=== PATIENT | female | born 1945 | race Caucasian/White ===

== ENCOUNTER 2020-09-01 22:00 | Inpatient (IN) | payer MEDICARE, OTHER ==
[2020-09-01] MEDS ORDERED: Sodium Chloride 0.9% 10 ML Syringe FLUSH PRN (22:22)
[2020-09-01] MEDS ORDERED: Lactated Ringers 1,000 ML IV ONE (22:25)
--- NOTE | 2020-09-01 22:28 | EDM.PDOC ---
ED HPI GENERAL MEDICAL PROBLEM - General Chief Complaint: Neuro Symptoms/Deficits Stated Complaint: OFF BALANCE/LOW OXYGEN LEVEL Time Seen by Provider: 09/01/20 22:06 Source of Information: Reports: Patient, Family History Limitations: Reports: Altered Mental Status - History of Present Illness INITIAL COMMENTS - FREE TEXT/NARRATIVE: Patient arrived to the ED by private vehicle She is accompanied by her daughter, who is primary historian Daughter encountered patient being very unsteady of gait today with generalized weakness and confusion She reports onset of symptoms 1 week ago with cough, fever Cough has somewhat improved, but she has had shortness of breath past few days Patient has also been having diarrhea Daughter reports markedly reduced oral intake over the past week Confusion, weakness, and difficulty walking were noted today Daughter also reports pulse oximetry 86-90% at home There is no history of trauma or injury Patient denies chest pain, abdominal pain, nausea, vomiting - Related Data Allergies Allergy/AdvReac Type Severity Reaction Status Date / Time No Known Allergies Allergy Verified 09/02/20 02:39 Home Meds: Home Meds Latanoprost/Pf [Latanoprost 0.005% Eye Drop] 1 drop OP DAILY 09/01/20 [History] Past Medical History ENROBER History: Reports: Endocrine/Metabolic History: Reports: Obesity/BMI 30+ Oncologic (Cancer) History: Reports: Uterine - Past Surgical History GI Surgical History: Reports: Appendectomy Female Surgical History: Reports: Other (See Below) Other Female Surgeries/Procedures: Uterus removed Social & Family History - Tobacco Use Tobacco Use Status *Q: Never Tobacco User - Caffeine Use Caffeine Use: Reports: Tea - Recreational Drug Use Recreational Drug Use: No ED ROS GENERAL - Review of Systems Review Of Systems: See Below Free Text/Narrative/Comment: Constitutional - fever; anorexia; generalized weakness Eyes - no eye pain; no visual disturbance ENT - no rhinorrhea; no congestion; no epistaxis Cardiovascular - no chest pain Respiratory - shortness of breath; cough Gastrointestinal - no abdominal pain; no nausea; no vomiting; diarrhea Genitourinary - no dysuria Musculoskeletal - no neck pain; no back pain; no extremity injury Neurological - no headache; no speech disturbance; generalized weakness; disorientation Skin - no laceration ED EXAM, GENERAL - Physical Exam Exam: See Below Free Text/Narrative:: Constitutional - awake; alert; appears generally weak, and mild to moderately ill Head - no facial swelling or weakness Eyes - extra ocular motion intact; conjunctiva normal; pupils equal and reactive to light ENT - no nasal deformity; no epistaxis; normal phonation; mucus membranes tacky; Neck - no swelling Respiratory - mild respiratory effort; bibasilar crackles; no wheezing; no stridor Cardiovascular - regular rhythm; tachycardic; S1; S2; grade 1/6 systolic murmur GI/Abdomen - normal bowel sounds; soft; no tenderness; no rebound; no guarding; no mass Musculoskeletal - grossly intact with no swelling or deformity Skin - warm; dry Neurologic - speech intact but quiet and somewhat slow; disoriented to day, season; grossly normal strength of all extremities; able to stand for transfer from wheelchair to stretcher with assistance; gait deferred Psychiatric - blunted mood and affect; memory deferred; attention normal #1 Interpretation EKG Date: 09/01/20 Time: 22:28 Rhythm: NSR [place]: Normal P-Wave: Present QRS: Normal ST-T: Normal Course - Vital Signs Text/Narrative:: . Considered etiologies included: Cough, dyspnea, anorexia, fever, weakness, altered mental status, dehydration, metabolic derangement, intracranial lesion, sepsis, pneumonia, viral syndrome, COVID-19 Symptoms and examination were discussed Investigations were initiated Treatment was initiated with IV fluid infusion Patient refused testing for COVID-19, as she does not believe that it is real She also did not seek or receive COVID-19 vaccination She was advised of clinical findings suspicious for pneumonia In consideration of her functional decline and ambulatory dysfunction, she was advised of anticipated need for admission Results were discussed, with radiographic findings suspicious for COVID-19 pneumonia Empiric antibiotic coverage for community-acquired pneumonia was also initiated 0026 - Case was discussed with Dr. Hollins (hospitalist) who accepted patient for admission Treatment with steroids was recommended Bridge orders were implemented by chief writer There was no occurrence of hypoxia during ED course Patient was admitted to general medical avery in stable condition Last Recorded V/S: Last Vital Signs Temp 37.5 C 09/02/20 02:08 Pulse 99 09/02/20 02:08 Resp 15 09/02/20 02:08 BP 163/71 H 09/02/20 02:08 Pulse Ox 95 09/02/20 02:08 - Orders/Labs/Meds Orders: Active Orders 24 hr Category Date Time Status EKG Documentation Completion [RC] ASDIRECTED Care 09/01/20 22:22 Active Chest 1V Frontal [CR] Stat Exams 09/01/20 22:19 Taken Head wo Cont [CT] Stat Exams 09/01/20 22:22 Taken CULTURE BLOOD [BC] Stat Lab 09/01/20 22:22 Ordered CULTURE BLOOD [BC] Stat Lab 09/01/20 23:00 Received Sodium Chloride 0.9% [Saline Flush] Med 09/01/20 22:22 Active 10 ml FLUSH ASDIRECTED PRN Blood Culture x2 Reflex Set [OM.PC] Stat Oth 09/01/20 22:19 Ordered Peripheral IV Insertion Adult [OM.PC] Stat Oth 09/01/20 22:19 Ordered EKG 12 Lead [EK] Stat Ther 09/01/20 22:18 Ordered Medication Orders Dexamethasone (Dexamethasone 4 Mg Tab) 6 mg PO DAILY YARELI Sodium Chloride (Normal Saline) 1,000 mls @ 150 mls/hr IV ASDIRECTED YARELI Last Admin: 09/02/20 02:41 Dose: 150 mls/hr Documented by: JESSY Latanoprost (Latanoprost 0.005% Ophth Soln 2.5 Ml Bottle) 0 ml EYEBOTH BEDTIME YARELI Sodium Chloride (Sodium Chloride 0.9% 10 Ml Syringe) 10 ml FLUSH ASDIRECTED PRN PRN Reason: Keep Vein Open Last Admin: 09/01/20 23:10 Dose: 10 ml Documented by: DARON Labs: Laboratory Tests 09/01/20 09/01/20 09/01/20 Range/Units 22:05 22:05 22:07 WBC 5.04 (3.98-10.04) K/mm3 RBC 4.71 (3.98-5.22) M/mm3 Hgb 13.2 (11.2-15.7) gm/dl Hct 38.2 (34.1-44.9) % MCV 81.1 (79.4-94.8) fl MCH 28.0 (25.6-32.2) pg MCHC 34.6 (32.2-35.5) g/dl RDW Std Deviation 38.2 (36.4-46.3) fL Plt Count 183 (182-369) K/mm3 MPV 10.8 (9.4-12.3) fl Neut % (Auto) 83.9 H (34.0-71.1) % Lymph % (Auto) 9.1 L (19.3-51.7) % [place] % (Auto) 4.4 L (4.7-12.5) % Eos % (Auto) 0.2 L (0.7-5.8) Baso % (Auto) 0.4 (0.1-1.2) % Neut # (Auto) 4.23 (1.56-6.13) K/mm3 Lymph # (Auto) 0.46 L (1.18-3.74) K/mm3 [place] # (Auto) 0.22 L (0.24-0.36) K/mm3 Eos # (Auto) 0.01 L (0.04-0.36) K/mm3 Baso # (Auto) 0.02 (0.01-0.08) K/mm3 Manual Slide Review Abnormal smear Sodium 124 L (136-145) mEq/L Potassium 3.1 L (3.5-5.1) mEq/L Chloride 87 L (98-107) mEq/L Carbon Dioxide 27 (21-32) mEq/L Anion Gap 13.1 (5-15) BUN 20 H (7-18) mg/dL Creatinine 1.3 H (0.55-1.02) mg/dL Est Cr Clr Drug Dosing 33.13 mL/min Estimated GFR (MDRD) 40 (>60) mL/min BUN/Creatinine Ratio 15.4 (14-18) Glucose 116 H (83-115) mg/dL POC Glucose 113 H (70-99) mg/dL Lactic Acid (0.4-2.0) mmol/L Calcium 8.2 L (8.5-10.1) mg/dL Total Bilirubin 0.9 (0.2-1.0) mg/dL AST 139 H (15-37) U/L ALT 108 H (14-59) U/L Alkaline Phosphatase 80 (46-116) U/L Troponin I < 0.017 (0.00-0.056) ng/mL Total Protein 7.8 (6.4-8.2) g/dl Albumin 3.1 L (3.4-5.0) g/dl Globulin 4.7 gm/dL Albumin/Globulin Ratio 0.7 L (1-2) 05/03/21 Range/Units 22:50 WBC (3.98-10.04) K/mm3 RBC (3.98-5.22) M/mm3 Hgb (11.2-15.7) gm/dl Hct (34.1-44.9) % MCV (79.4-94.8) fl MCH (25.6-32.2) pg MCHC (32.2-35.5) g/dl RDW Std Deviation (36.4-46.3) fL Plt Count (182-369) K/mm3 MPV (9.4-12.3) fl Neut % (Auto) (34.0-71.1) % Lymph % (Auto) (19.3-51.7) % [place] % (Auto) (4.7-12.5) % Eos % (Auto) (0.7-5.8) Baso % (Auto) (0.1-1.2) % Neut # (Auto) (1.56-6.13) K/mm3 Lymph # (Auto) (1.18-3.74) K/mm3 [place] # (Auto) (0.24-0.36) K/mm3 Eos # (Auto) (0.04-0.36) K/mm3 Baso # (Auto) (0.01-0.08) K/mm3 Manual Slide Review Sodium (136-145) mEq/L Potassium (3.5-5.1) mEq/L Chloride (98-107) mEq/L Carbon Dioxide (21-32) mEq/L Anion Gap (5-15) BUN (7-18) mg/dL Creatinine (0.55-1.02) mg/dL Est Cr Clr Drug Dosing mL/min Estimated GFR (MDRD) (>60) mL/min BUN/Creatinine Ratio (14-18) Glucose (83-115) mg/dL POC Glucose (70-99) mg/dL Lactic Acid 1.3 (0.4-2.0) mmol/L Calcium (8.5-10.1) mg/dL Total Bilirubin (0.2-1.0) mg/dL AST (15-37) U/L ALT (14-59) U/L Alkaline Phosphatase (46-116) U/L Troponin I (0.00-0.056) ng/mL Total Protein (6.4-8.2) g/dl Albumin (3.4-5.0) g/dl Globulin gm/dL Albumin/Globulin Ratio (1-2) Meds: Medications Generic Name Dose Route Start Last Admin Trade Name Eugeneq PRN Reason Stop Dose Admin Dexamethasone 6 mg 09/02/20 09:00 Dexamethasone 4 Mg Tab PO DAILY YARELI Sodium Chloride 1,000 mls @ 150 mls/hr 09/02/20 02:45 09/02/20 02:41 Normal Saline IV 150 mls/hr ASDIRECTED YARELI Administration Latanoprost 0 ml 09/02/20 21:00 Latanoprost 0.005% Ophth Soln 2.5 Ml Bottle EYEBOTH BEDTIME YARELI Sodium Chloride 10 ml 09/01/20 22:22 09/01/20 23:10 Sodium Chloride 0.9% 10 Ml Syringe FLUSH 10 ml ASDIRECTED PRN Administration Keep Vein Open Discontinued Medications Generic Name Dose Route Start Last Admin Trade Name Eugeneq PRN Reason Stop Dose Admin Azithromycin 500 mg 09/02/20 01:11 09/02/20 01:44 Azithromycin 250 Mg Tab PO 09/02/20 01:12 500 mg ONETIME ONE Administration Dexamethasone 6 mg 09/02/20 01:10 09/02/20 01:44 Dexamethasone 4 Mg Tab PO 09/02/20 01:11 6 mg ONETIME ONE Administration Lactated Ringer's 1,000 mls @ 999 mls/hr 09/01/20 22:25 09/01/20 23:10 Ringers, Lactated IV 09/01/20 23:25 999 mls/hr .BOLUS ONE Administration Ceftriaxone Sodium 1 gm/ 100 mls @ 200 mls/hr 09/01/20 23:49 Sodium Chloride IV 09/02/20 00:18 ONETIME ONE Sodium Chloride 1,000 mls @ 999 mls/hr 09/01/20 23:52 09/02/20 00:21 Normal Saline IV 09/02/20 00:52 999 mls/hr ONETIME ONE Administration Ceftriaxone Sodium 1 gm/ 100 mls @ 200 mls/hr 09/02/20 00:12 09/02/20 00:21 Sodium Chloride IV 09/02/20 00:41 200 mls/hr ONETIME ONE Administration Sodium Chloride 1,000 mls @ 150 mls/hr 09/02/20 02:30 Normal Saline IV ASDIRECTED YARELI - Radiology Interpretation Free Text/Narrative:: CT head, noncontrast, preliminary radiology report: 1. Negative head CT. 2. [place] Stroke Program Early CT CAP score (ASPECTS) = 10 XR chest, one-view portable, interpreted by chief writer: Patchy bilateral infiltrates consistent with COVID-19 pneumonia Departure - Departure Time of Disposition: 00:26 Disposition: Refer to Observation Condition: Fair Clinical Impression: Clinical diagnosis of COVID-19, Pneumonia due to 2019 novel coronavirus, Weakness generalized, Hyponatremia, Hypokalemia, Renal insufficiency Change in mental status Qualifiers: Altered mental status type: disorientation Qualified Code(s): R41.0 - Disorientation, unspecified - Discharge Information Sepsis Event Note (ED) - Evaluation Sepsis Screening Result: Possible Sepsis Risk - Focused Exam Vital Signs: Vital Signs Temp Pulse Resp BP Pulse Ox 09/01/20 22:06 36.7 C 111 H 16 152/79 H 91 L - My Orders Last 24 Hours: My Active Orders 09/01/20 22:18 EKG 12 Lead [EK] Stat 09/01/20 22:19 Chest 1V Frontal [CR] Stat Blood Culture x2 Reflex Set [OM.PC] Stat Peripheral IV Insertion Adult [OM.PC] Stat 09/01/20 22:22 EKG Documentation Completion [RC] ASDIRECTED Head wo Cont [CT] Stat CULTURE BLOOD [BC] Stat Sodium Chloride 0.9% [Saline Flush] 10 ml FLUSH ASDIRECTED PRN 09/01/20 23:00 CULTURE BLOOD [BC] Stat - Assessment/Plan Last 24 Hours: My Active Orders 09/01/20 22:18 EKG 12 Lead [EK] Stat 09/01/20 22:19 Chest 1V Frontal [CR] Stat Blood Culture x2 Reflex Set [OM.PC] Stat Peripheral IV Insertion Adult [OM.PC] Stat 09/01/20 22:22 EKG Documentation Completion [RC] ASDIRECTED Head wo Cont [CT] Stat CULTURE BLOOD [BC] Stat Sodium Chloride 0.9% [Saline Flush] 10 ml FLUSH ASDIRECTED PRN 09/01/20 23:00 CULTURE BLOOD [BC] Stat
[2020-09-01] MEDS ORDERED: cefTRIAXone 1 GM in Sodium Chloride 0.9% 100 ML IV ONE (23:49)
[2020-09-01] MEDS ORDERED: Sodium Chloride 0.9% 1,000 ML IV ONE (23:52)
[2020-09-02] MEDS ORDERED: cefTRIAXone 1 GM in Sodium Chloride 0.9% 100 ML IV ONE (00:12)
[2020-09-02] MEDS ORDERED: Dexamethasone 4 MG Tab PO ONE (01:10)
[2020-09-02] MEDS ORDERED: Azithromycin 250 MG Tab PO ONE (01:11)
[2020-09-02] MEDS ORDERED: Sodium Chloride 0.9% 1,000 ML IV SCH ×2 (02:30→02:45)
[2020-09-02] MEDS ORDERED: Potassium Chloride 20 MEQ Tab.ER PO ONE (04:52)
[2020-09-02] MEDS ORDERED: Albuterol 6.7 GM Inhaler INH PRN (07:37)
--- NOTE | 2020-09-02 08:14 | CR ---
Chest: Portable view of the chest was obtained. Comparison: No prior chest x-rays available. Patchy areas of increased density within the right upper lung and right lower lung as well as within the left midlung. Heart size and mediastinum are normal. Bony structures show nothing acute. Impression: 1. Patchy areas of increased density on both sides of the chest. Findings most likely represent multifocal pneumonia. Please rule out COVID disease. Follow-up recommended to make sure findings resolve. 2. No additional abnormality is appreciated. Diagnostic code #3
--- NOTE | 2020-09-02 08:15 | CT ---
Head CT Technique: Multiple axial sections through the brain were obtained. Intravenous contrast was not utilized. Reconstructed orbital and sagittal images were obtained. Comparison: No prior intracranial imaging is available. Findings: Ventricles along with basal cisterns and sulci over the convexities appear within normal limits for the patient's age. Minimal areas of diminished density are scattered within the periventricular white matter which most likely represent small vessel ischemic demyelination change. No other abnormal parenchymal densities are seen. No evidence of intracranial hemorrhage. No midline shift or mass-effect is appreciated. Bone window settings were reviewed. Visualized mastoid sinuses and paranasal sinuses show nothing acute. No acute calvarial abnormality is appreciated. Impression: 1. Minimal senescent change. 2. Nothing acute is appreciated on noncontrast head CT exam. Diagnostic code #2 I agree with preliminary report from [facility], finalized on 09/01/20, 11:54 PM CDT, code 1
[2020-09-02] MEDS: Dexamethasone 4 MG Tab PO SCH (10:03)
--- NOTE | 2020-09-02 10:12 | PCM.HP.2 ---
H&P History of Present Illness - General Date of Service: 09/02/20 Admit Problem/Dx: Admission Diagnosis/Problem Admission Diagnosis/Problem Altered mental status Source of Information: Patient History Limitations: Reports: No Limitations - History of Present Illness Initial Comments - Free Text/Narative: Patient is a 75-year-old female who was brought in by her family due to concerns over ongoing weakness and unsteadiness on her feet. Patient reports over the past several days she has had subjective fevers, chills, night sweats, myalgias arthralgias as well as shortness of breath. Patient denies any recent exposure to COVID-19 nor does she endorse any recent travel. The patient does state that she has felt a little bit more confused than normal as well. The patient is usually ambulatory at home however over the past several days has been having some difficulty relating secondary to weakness. The patient does have some shortness of breath however at time of presentation is not in acute hypoxic respiratory failure. In the emergency department patient refused Covid testing and once again refuses Covid testing this morning. 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: Endocrine/Metabolic History: Reports: Obesity/BMI 30+ Oncologic (Cancer) History: Reports: Uterine Dermatologic History: Reports: Eczema - Infectious Disease History Infectious Disease History: Reports: Influenza, Novel Coronavirus - Past Surgical History HEENT Surgical History: Reports: None GI Surgical History: Reports: Appendectomy Female Surgical History: Reports: Other (See Below) Other Female Surgeries/Procedures: Uterus removed Endocrine Surgical History: Reports: None Oncologic Surgical History: Reports: Other (See Below) Other Oncologic Surgeries/Procedures: partial hysterectomy Social & Family History - Family History Family Medical History: No Pertinent Family History - Tobacco Use Tobacco Use Status *Q: Never Tobacco User Second Hand Smoke Exposure: No - Caffeine Use Caffeine Use: Reports: Tea Other Caffeine Use: couple cups of tea every da - Recreational Drug Use Recreational Drug Use: No H&P Review of Systems - Review of Systems: Review Of Systems: Comprehensive ROS is negative, except as noted in HPI. General: Reports: Fever, Chills, Malaise, Weakness, Fatigue, Night Sweats Pulmonary: Reports: Shortness of Breath Musculoskeletal: Reports: Joint Pain, Muscle Pain Exam - Exam Exam: See Below - Vital Signs Vital Signs: Last Vital Signs Temp 97.9 F 09/02/20 08:21 Pulse 91 09/02/20 08:21 Resp 18 09/02/20 08:21 BP 132/70 09/02/20 08:21 Pulse Ox 95 09/02/20 08:21 Weight: 183 lb - Exam Quality Assessment: No: Supplemental Oxygen General: Alert, Oriented, Cooperative HEENT: Conjunctiva Clear, Hearing Intact, Mucosa Moist & [place], Nares Patent, Pupils Equal Neck: Trachea Midline Lungs: Clear to Auscultation, Normal Respiratory Effort. No: Crackles, Rales, Rhonchi Cardiovascular: Regular Rate, Regular Rhythm, Normal S1, Normal S2. No: Systolic Murmur GI/Abdominal Exam: Normal Bowel Sounds, Soft, Non-Tender, No Distention Extremities: Normal Inspection Peripheral Pulses: 2+: Radial (L), Radial (R) Skin: Warm, Dry, Intact Neurological: Cranial Nerves Intact, Normal Speech, Normal Tone, Other (GCS 15) Neuro Extensive - Mental Status: Alert, Oriented x3, Normal Mood/Affect - Patient Data Lab Results Last 24 hrs: Laboratory Results - last 24 hr 09/01/20 09/01/20 09/01/20 Range/Units 22:05 22:05 22:07 WBC 5.04 (3.98-10.04) K/mm3 RBC 4.71 (3.98-5.22) M/mm3 Hgb 13.2 (11.2-15.7) gm/dl Hct 38.2 (34.1-44.9) % MCV 81.1 (79.4-94.8) fl MCH 28.0 (25.6-32.2) pg MCHC 34.6 (32.2-35.5) g/dl RDW Std Deviation 38.2 (36.4-46.3) fL Plt Count 183 (182-369) K/mm3 MPV 10.8 (9.4-12.3) fl Neut % (Auto) 83.9 H (34.0-71.1) % Lymph % (Auto) 9.1 L (19.3-51.7) % [place] % (Auto) 4.4 L (4.7-12.5) % Eos % (Auto) 0.2 L (0.7-5.8) Baso % (Auto) 0.4 (0.1-1.2) % Neut # (Auto) 4.23 (1.56-6.13) K/mm3 Lymph # (Auto) 0.46 L (1.18-3.74) K/mm3 [place] # (Auto) 0.22 L (0.24-0.36) K/mm3 Eos # (Auto) 0.01 L (0.04-0.36) K/mm3 Baso # (Auto) 0.02 (0.01-0.08) K/mm3 Manual Slide Review Abnormal smear Sodium 124 L (136-145) mEq/L Potassium 3.1 L (3.5-5.1) mEq/L Chloride 87 L (98-107) mEq/L Carbon Dioxide 27 (21-32) mEq/L Anion Gap 13.1 (5-15) BUN 20 H (7-18) mg/dL Creatinine 1.3 H (0.55-1.02) mg/dL Est Cr Clr Drug Dosing 33.13 mL/min Estimated GFR (MDRD) 40 (>60) mL/min BUN/Creatinine Ratio 15.4 (14-18) Glucose 116 H (83-115) mg/dL POC Glucose 113 H (70-99) mg/dL Lactic Acid (0.4-2.0) mmol/L Calcium 8.2 L (8.5-10.1) mg/dL Total Bilirubin 0.9 (0.2-1.0) mg/dL AST 139 H (15-37) U/L ALT 108 H (14-59) U/L Alkaline Phosphatase 80 (46-116) U/L Troponin I < 0.017 (0.00-0.056) ng/mL Total Protein 7.8 (6.4-8.2) g/dl Albumin 3.1 L (3.4-5.0) g/dl Globulin 4.7 gm/dL Albumin/Globulin Ratio 0.7 L (1-2) Urine Color (Yellow) Urine Appearance (Clear) Urine pH (5.0-8.0) Ur Specific [place] (1.005-1.030) Urine Protein (Negative) Urine Glucose (UA) (Negative) Urine Ketones (Negative) Urine Occult Blood (Negative) Urine Nitrite (Negative) Urine Bilirubin (Negative) Urine Urobilinogen (0.2-1.0) Ur Leukocyte Esterase (Negative) Urine RBC (0-5) /hpf Urine WBC (0-5) /hpf Ur Squamous Epith Cells (0-5) /hpf Urine Bacteria (FEW) /hpf WBC Casts (0-5) /lpf Urine Mucus (FEW) /hpf 09/01/20 09/02/20 09/02/20 Range/Units 22:50 01:30 07:55 WBC (3.98-10.04) K/mm3 RBC (3.98-5.22) M/mm3 Hgb (11.2-15.7) gm/dl Hct (34.1-44.9) % MCV (79.4-94.8) fl MCH (25.6-32.2) pg MCHC (32.2-35.5) g/dl RDW Std Deviation (36.4-46.3) fL Plt Count (182-369) K/mm3 MPV (9.4-12.3) fl Neut % (Auto) (34.0-71.1) % Lymph % (Auto) (19.3-51.7) % [place] % (Auto) (4.7-12.5) % Eos % (Auto) (0.7-5.8) Baso % (Auto) (0.1-1.2) % Neut # (Auto) (1.56-6.13) K/mm3 Lymph # (Auto) (1.18-3.74) K/mm3 [place] # (Auto) (0.24-0.36) K/mm3 Eos # (Auto) (0.04-0.36) K/mm3 Baso # (Auto) (0.01-0.08) K/mm3 Manual Slide Review Sodium 130 L (136-145) mEq/L Potassium 3.4 L (3.5-5.1) mEq/L Chloride 95 L (98-107) mEq/L Carbon Dioxide 24 (21-32) mEq/L Anion Gap 14.4 (5-15) BUN 15 (7-18) mg/dL Creatinine 1.0 (0.55-1.02) mg/dL Est Cr Clr Drug Dosing 43.07 mL/min Estimated GFR (MDRD) 54 (>60) mL/min BUN/Creatinine Ratio 15.0 (14-18) Glucose 143 H (83-115) mg/dL POC Glucose (70-99) mg/dL Lactic Acid 1.3 (0.4-2.0) mmol/L Calcium 7.7 L (8.5-10.1) mg/dL Total Bilirubin 0.7 (0.2-1.0) mg/dL AST 92 H (15-37) U/L ALT 82 H (14-59) U/L Alkaline Phosphatase 64 (46-116) U/L Troponin I (0.00-0.056) ng/mL Total Protein 6.5 (6.4-8.2) g/dl Albumin 2.4 L (3.4-5.0) g/dl Globulin 4.1 gm/dL Albumin/Globulin Ratio 0.6 L (1-2) Urine Color Yellow (Yellow) Urine Appearance Clear (Clear) Urine pH 6.5 (5.0-8.0) Ur Specific [place] 1.020 (1.005-1.030) Urine Protein 2+ H (Negative) Urine Glucose (UA) Negative (Negative) Urine Ketones Negative (Negative) Urine Occult Blood Trace-intact H (Negative) Urine Nitrite Negative (Negative) Urine Bilirubin Negative (Negative) Urine Urobilinogen 0.2 (0.2-1.0) Ur Leukocyte Esterase Negative (Negative) Urine RBC 0-5 (0-5) /hpf Urine WBC 0-5 (0-5) /hpf Ur Squamous Epith Cells 0-5 (0-5) /hpf Urine Bacteria Few (FEW) /hpf WBC Casts 0-5 (0-5) /lpf Urine Mucus Few (FEW) /hpf Result Diagrams: 09/01/20 22:05 09/02/20 07:55 Sepsis Event Note - Evaluation Sepsis Screening Result: No Definite Risk - Focused Exam Vital Signs: Vital Signs Temp Pulse Pulse Resp BP BP Pulse Ox 09/02/20 08:21 97.9 F 91 18 132/70 95 09/02/20 02:08 99.5 F 99 15 163/71 H 95 09/02/20 02:00 80 16 133/80 97 Problem List Initiated/Reviewed/Updated: Yes Orders Last 24hrs: Active Orders 24 hr Category Date Time Status Admission Status [Patient Status] [ADT] Routine ADT 09/02/20 00:31 Active EKG Documentation Completion [RC] ASDIRECTED Care 09/01/20 22:22 Active Intake and Output [RC] ASDIRECTED Care 09/02/20 03:48 Active OOB [Out of Bed] [RC] Q8HR Care 09/02/20 03:43 Active Oxygen Therapy Adult [Oxygen Therapy] [RC] ASDIRECTED Care 09/02/20 03:44 Active RT Post Treatment Assessment [RC] Click to Edit Care 09/02/20 07:38 Active RT Pre-Treatment Assessment [RC] Click to Edit Care 09/02/20 07:38 Active Consult to Respiratory Therapy [Respiratory Care Assess Cons 09/02/20 07:37 Active and Treatment] [CONS] Routine Regular Diet [DIET] Diet 09/02/20 Breakfast Active COMPREHENSIVE METABOLIC PN,CMP [CHEM] AM Lab 09/03/20 05:11 Ordered COMPREHENSIVE METABOLIC PN,CMP [CHEM] AM Lab 09/04/20 05:11 Ordered CULTURE BLOOD [BC] Stat Lab 09/01/20 22:50 Received CULTURE BLOOD [BC] Stat Lab 09/01/20 23:00 Received PROCALCITONIN [REF] Routine Lab 09/02/20 07:55 Received Albuterol [Proventil HFA] Med 09/02/20 07:37 Active See Dose Instructions INH Q2H PRN Azithromycin [Zithromax] 500 mg Med 09/02/20 21:30 Active Sodium Chloride 0.9% [Normal Saline (AdvBag)] 250 ml IV Q24H Latanoprost [Xalatan 0.005% Ophth Soln] Med 09/02/20 21:00 Active 0 ml EYEBOTH BEDTIME Latanoprost/Pf [Latanoprost 0.005% Eye Drop] Med 09/02/20 09:00 Pending 1 drop OP DAILY Sodium Chloride 0.9% [Saline Flush] Med 09/01/20 22:22 Active 10 ml FLUSH ASDIRECTED PRN cefTRIAXone [Rocephin] 1 gm Med 09/02/20 21:00 Active Sodium Chloride 0.9% [Normal Saline] 100 ml IV Q24H dexAMETHasone Med 09/02/20 09:00 Active 6 mg PO DAILY Blood Culture x2 Reflex Set [OM.PC] Stat Oth 09/01/20 22:19 Ordered Peripheral IV Insertion Adult [OM.PC] Stat Oth 09/01/20 22:19 Ordered Code Status [Resuscitation Status] Routine Resus Stat 09/02/20 03:41 Ordered EKG 12 Lead [EK] Stat Ther 09/01/20 22:18 Ordered Medication Orders Albuterol (Albuterol 6.7 Gm Inhaler) 0 gm INH Q2H PRN PRN Reason: shortness of breath Dexamethasone (Dexamethasone 4 Mg Tab) 6 mg PO DAILY YARELI Ceftriaxone Sodium 1 gm/ (Sodium Chloride) 100 mls @ 200 mls/hr IV Q24H YARELI Azithromycin 500 mg/ Sodium (Chloride) 250 mls @ 250 mls/hr IV Q24H YARELI Latanoprost (Latanoprost 0.005% Ophth Soln 2.5 Ml Bottle) 0 ml EYEBOTH BEDTIME YARELI Non-Formulary Medication (Latanoprost/Pf [Latanoprost 0.005% Eye Drop]) 1 drop OP DAILY YARELI Sodium Chloride (Sodium Chloride 0.9% 10 Ml Syringe) 10 ml FLUSH ASDIRECTED PRN PRN Reason: Keep Vein Open Last Admin: 09/01/20 23:10 Dose: 10 ml Documented by: DARON Assessment/Plan Comment:: A: COVID 19 -Refused testing on admission -Diagnosis predicated on chest x-ray showing bilateral pulmonary infiltrates, myalgias arthralgias night sweats, shortness of breath subjective fevers, chills and night sweats. -No acute hypoxic respiratory failure -Has transaminitis at time of presentation -No hx of prior infection/vaccination Hyponatremia -Na 124 on admission, now 130 s/p NS infusion -Suspect patient had intravascular volume depletion consistent with hypovolemic hyponatremia secondary to decreased p.o. intake -May have contibuted to patient's weakness as well as ongoing COVID-19 Transaminitis -Elevated AST/ALT in setting of covid -Normal Tbili, Alk P04 Hypokalemia -Mild 3.1 at time of admission P: -Admit to observation -Rocephin/Azithromycin started in ED, continue -Dexamethasone 6mg daily x 10 days -Hold Remdesivir as no acute hypoxic respiratory failure -For acute hypoxic respiratory failure requiring supplemental oxygen -Discontinue normal saline to avoid over fluid resuscitation in setting of Covid, repeat serum sodium -Trend AST/ALT -K replacement per protocol -DVT prophylaxis -D-dimer to guide DVT prophylaxis in setting of COVID - Mortality Measure Prognosis:: Good
[2020-09-02] MEDS ORDERED: Enoxaparin 40 MG/0.4 ML Syringe SUBCUT SCH (10:30)
[2020-09-02] MEDS: Enoxaparin 40 MG/0.4 ML Syringe SUBCUT SCH ×2 (11:07→21:04)
[2020-09-02] MEDS: cefTRIAXone 1 GM in Sodium Chloride 0.9% 100 ML IV SCH (21:00)
[2020-09-02] MEDS: Latanoprost 0.005% Ophth Soln 2.5 ML Bottle EYEBOTH SCH (21:02)
[2020-09-02] MEDS: Azithromycin 500 MG in Sodium Chloride 0.9% 250 ML IV SCH (22:10)
[2020-09-03] MEDS: Dexamethasone 4 MG Tab PO SCH (08:01)
[2020-09-03] MEDS: Enoxaparin 40 MG/0.4 ML Syringe SUBCUT SCH ×2 (08:02→21:02)
[2020-09-03] MEDS: Acetaminophen 325 MG Tab PO PRN (09:01)
[2020-09-03] MEDS: Famotidine 20 MG Tab PO SCH (10:30)
[2020-09-03] MEDS ORDERED: REMDESIVIR 200 MG in Sodium Chloride 0.9% 250 ML IV ONE (10:30)
[2020-09-03] MEDS: Potassium Chloride 20 MEQ Tab.ER PO SCH ×2 (10:31→14:36)
--- NOTE | 2020-09-03 10:33 | PCM.PN ---
- General Info Date of Service: 09/03/20 Admission Dx/Problem (Free Text): Admission Diagnosis/Problem Admission Diagnosis/Problem Altered mental status Subjective Update: Melly reports feeling a little worse overall today. She has been placed on oxygen at 2 L per nasal cannula to keep her O2 saturations greater than 90%. She states her breathing is slightly more labored and she is more short of breath. She has developed persistent nonproductive cough. She states her appetite has decreased. She has also developed a low-grade temp this morning of 100.2. Reports that she does still have her sense of taste and smell. She denies any nausea, vomiting or diarrhea. Functional Status: Reports: Pain Controlled, Ambulating (Needs), Urinating, Incentive Spirometry (Needs strong encouragement), Other (Educated on the need to start proning). Denies: Tolerating Diet - Review of Systems General: Reports: Fever. Denies: Appetite (poor) HEENT: Reports: Glasses Pulmonary: Reports: Shortness of Breath, Cough. Denies: Pleuritic Chest Pain, Sputum, Wheezing Cardiovascular: Reports: Dyspnea on Exertion. Denies: Chest Pain, Palpitations, Orthopnea, Edema Gastrointestinal: Reports: Decreased Appetite. Denies: Abdominal Pain, Diarrhea, Nausea, Vomiting Genitourinary: Reports: No Symptoms Musculoskeletal: Reports: No Symptoms Skin: Reports: No Symptoms Neurological: Reports: Confusion. Denies: Headache Psychiatric: Reports: Confusion - Patient Data Vitals - Most Recent: Last Vital Signs Temp 100.2 F 09/03/20 09:01 Pulse 99 09/03/20 08:01 Resp 16 09/03/20 08:01 BP 122/59 L 09/03/20 08:01 Pulse Ox 93 L 09/03/20 10:05 Weight - Most Recent: 183 lb I&O - Last 24 Hours: Intake & Output 09/02/20 09/03/20 09/03/20 22:59 06:59 14:59 Intake Total 1000 800 Output Total 1500 1000 Balance -500 -200 Lab Results Last 24 Hours: Laboratory Results - last 24 hr 09/02/20 09/02/20 09/02/20 Range/Units 07:55 07:55 07:55 WBC 3.93 L (3.98-10.04) K/mm3 RBC 4.21 (3.98-5.22) M/mm3 Hgb 11.8 (11.2-15.7) gm/dl Hct 34.4 (34.1-44.9) % MCV 81.7 (79.4-94.8) fl MCH 28.0 (25.6-32.2) pg MCHC 34.3 (32.2-35.5) g/dl RDW Std Deviation 38.3 (36.4-46.3) fL Plt Count 99 L D (182-369) K/mm3 MPV 11.7 (9.4-12.3) fl Neut % (Auto) (34.0-71.1) % Lymph % (Auto) (19.3-51.7) % Holt % (Auto) (4.7-12.5) % Eos % (Auto) (0.7-5.8) Baso % (Auto) (0.1-1.2) % Neut # (Auto) (1.56-6.13) K/mm3 Lymph # (Auto) (1.18-3.74) K/mm3 Holt # (Auto) (0.24-0.36) K/mm3 Eos # (Auto) (0.04-0.36) K/mm3 Baso # (Auto) (0.01-0.08) K/mm3 Manual Slide Review D-Dimer, Quantitative 5.20 H (0.19-0.50) mg/L Sodium (136-145) mEq/L Potassium (3.5-5.1) mEq/L Chloride (98-107) mEq/L Carbon Dioxide (21-32) mEq/L Anion Gap (5-15) BUN (7-18) mg/dL Creatinine (0.55-1.02) mg/dL Est Cr Clr Drug Dosing mL/min Estimated GFR (MDRD) (>60) mL/min BUN/Creatinine Ratio (14-18) Glucose (83-115) mg/dL Calcium (8.5-10.1) mg/dL Total Bilirubin (0.2-1.0) mg/dL AST (15-37) U/L ALT (14-59) U/L Alkaline Phosphatase (46-116) U/L Total Protein (6.4-8.2) g/dl Albumin (3.4-5.0) g/dl Globulin gm/dL Albumin/Globulin Ratio (1-2) Procalcitonin 0.32 H ng/mL 09/03/20 09/03/20 Range/Units 05:50 05:50 WBC 8.30 (3.98-10.04) K/mm3 RBC 3.93 L (3.98-5.22) M/mm3 Hgb 11.0 L (11.2-15.7) gm/dl Hct 32.3 L (34.1-44.9) % MCV 82.2 (79.4-94.8) fl MCH 28.0 (25.6-32.2) pg MCHC 34.1 (32.2-35.5) g/dl RDW Std Deviation 38.7 (36.4-46.3) fL Plt Count 133 L (182-369) K/mm3 MPV 11.4 (9.4-12.3) fl Neut % (Auto) 86.9 H (34.0-71.1) % Lymph % (Auto) 6.4 L (19.3-51.7) % Holt % (Auto) 4.6 L (4.7-12.5) % Eos % (Auto) 0.1 L (0.7-5.8) Baso % (Auto) 0.1 (0.1-1.2) % Neut # (Auto) 7.21 H (1.56-6.13) K/mm3 Lymph # (Auto) 0.53 L (1.18-3.74) K/mm3 Holt # (Auto) 0.38 H (0.24-0.36) K/mm3 Eos # (Auto) 0.01 L (0.04-0.36) K/mm3 Baso # (Auto) 0.01 (0.01-0.08) K/mm3 Manual Slide Review Abnormal smear D-Dimer, Quantitative (0.19-0.50) mg/L Sodium 134 L (136-145) mEq/L Potassium 3.2 L (3.5-5.1) mEq/L Chloride 98 (98-107) mEq/L Carbon Dioxide 26 (21-32) mEq/L Anion Gap 13.2 (5-15) BUN 14 (7-18) mg/dL Creatinine 0.9 (0.55-1.02) mg/dL Est Cr Clr Drug Dosing 47.85 mL/min Estimated GFR (MDRD) > 60 (>60) mL/min BUN/Creatinine Ratio 15.6 (14-18) Glucose 134 H (83-115) mg/dL Calcium 7.9 L (8.5-10.1) mg/dL Total Bilirubin 0.7 (0.2-1.0) mg/dL AST 66 H (15-37) U/L ALT 71 H (14-59) U/L Alkaline Phosphatase 66 (46-116) U/L Total Protein 6.4 (6.4-8.2) g/dl Albumin 2.4 L (3.4-5.0) g/dl Globulin 4.0 gm/dL Albumin/Globulin Ratio 0.6 L (1-2) Procalcitonin ng/mL Chavez Results Last 24 Hours: Microbiology 09/01/20 23:00 Aerobic Blood Culture - Preliminary Blood - Venous - Lab Draw NO GROWTH AFTER 1 DAY Anaerobic Blood Culture - Preliminary NO GROWTH AFTER 1 DAY 09/01/20 22:50 Aerobic Blood Culture - Preliminary Blood - Venous NO GROWTH AFTER 1 DAY Anaerobic Blood Culture - Preliminary NO GROWTH AFTER 1 DAY Med Orders - Current: Current Medications Acetaminophen (Acetaminophen 325 Mg Tab) 650 mg PO Q4H PRN PRN Reason: Fever Last Admin: 09/03/20 09:01 Dose: 650 mg Documented by: Albuterol (Albuterol 6.7 Gm Inhaler) 0 gm INH Q2H PRN PRN Reason: shortness of breath Dexamethasone (Dexamethasone 4 Mg Tab) 6 mg PO DAILY [facility] Last Admin: 09/03/20 08:01 Dose: 6 mg Documented by: Enoxaparin Sodium (Enoxaparin 40 Mg/0.4 Ml Syringe) 40 mg SUBCUT BID [facility] Last Admin: 09/03/20 08:02 Dose: 40 mg Documented by: Famotidine (Famotidine 20 Mg Tab) 20 mg PO DAILY [facility] Ceftriaxone Sodium 1 gm/ (Sodium Chloride) 100 mls @ 200 mls/hr IV Q24H [facility] Last Admin: 09/02/20 21:00 Dose: 200 mls/hr Documented by: Azithromycin 500 mg/ Sodium (Chloride) 250 mls @ 250 mls/hr IV Q24H [facility] Last Admin: 09/02/20 22:10 Dose: 250 mls/hr Documented by: Remdesivir 200 mg/ Sodium (Chloride) 250 mls @ 250 mls/hr IV ONETIME ONE Stop: 09/03/20 11:29 Remdesivir 100 mg/ Sodium (Chloride) 100 mls @ 100 mls/hr IV DAILY [facility] Stop: 09/07/20 09:59 Latanoprost (Latanoprost 0.005% Ophth Soln 2.5 Ml Bottle) 0 ml EYEBOTH BEDTIME [facility] Last Admin: 09/02/20 21:02 Dose: 1 drop Documented by: Melatonin (Melatonin 3 Mg Tab) 9 mg PO BEDTIME [facility] Potassium Chloride (Potassium Chloride 20 Meq Tab.Er) 40 meq PO Q4H YARELI Stop: 09/03/20 14:01 Sodium Chloride (Sodium Chloride 0.9% 10 Ml Syringe) 10 ml FLUSH ASDIRECTED PRN PRN Reason: Keep Vein Open Last Admin: 09/01/20 23:10 Dose: 10 ml Documented by: Discontinued Medications Azithromycin (Azithromycin 250 Mg Tab) 500 mg PO ONETIME ONE Stop: 09/02/20 01:12 Last Admin: 09/02/20 01:44 Dose: 500 mg Documented by: Dexamethasone (Dexamethasone 4 Mg Tab) 6 mg PO ONETIME ONE Stop: 09/02/20 01:11 Last Admin: 09/02/20 01:44 Dose: 6 mg Documented by: Enoxaparin Sodium (Enoxaparin 40 Mg/0.4 Ml Syringe) 40 mg SUBCUT DAILY [facility] Last Admin: 09/02/20 11:36 Dose: Not Given Documented by: Lactated Ringer's (Ringers, Lactated) 1,000 mls @ 999 mls/hr IV .BOLUS ONE Stop: 09/01/20 23:25 Last Admin: 09/01/20 23:10 Dose: 999 mls/hr Documented by: Ceftriaxone Sodium 1 gm/ (Sodium Chloride) 100 mls @ 200 mls/hr IV ONETIME ONE Stop: 09/02/20 00:18 Last Admin: 09/02/20 18:17 Dose: Not Given Documented by: Sodium Chloride (Normal Saline) 1,000 mls @ 999 mls/hr IV ONETIME ONE Stop: 09/02/20 00:52 Last Admin: 09/02/20 00:21 Dose: 999 mls/hr Documented by: Ceftriaxone Sodium 1 gm/ (Sodium Chloride) 100 mls @ 200 mls/hr IV ONETIME ONE Stop: 09/02/20 00:41 Last Admin: 09/02/20 00:21 Dose: 200 mls/hr Documented by: Sodium Chloride (Normal Saline) 1,000 mls @ 150 mls/hr IV ASDIRECTED YARELI Sodium Chloride (Normal Saline) 1,000 mls @ 150 mls/hr IV ASDIRECTED YARELI Last Admin: 09/02/20 02:41 Dose: 150 mls/hr Documented by: Potassium Chloride (Potassium Chloride 20 Meq Tab.Er) 40 meq PO ONETIME ONE Stop: 09/02/20 04:53 Last Admin: 09/02/20 05:05 Dose: 40 meq Documented by: - Exam Quality Assessment: Supplemental Oxygen (2 liters per NC), DVT Prophylaxis (Lovenox 40 bid) General: Alert. No: Oriented (oriented to time and person) HEENT: Pupils Equal, Mucous Membr. Moist/[place] Neck: Supple, Trachea Midline Lungs: Decreased Breath Sounds, Crackles (posterior). No: Clear to Auscultation, Normal Respiratory Effort, Wheezing Cardiovascular: Regular Rate, Regular Rhythm, Murmurs (grade 2 systolic murmur). No: No Murmurs GI/Abdominal Exam: Normal Bowel Sounds, Soft, Non-Tender, No Distention (Female) Exam: Deferred Back Exam: Normal Inspection, Full Range of Motion Extremities: Normal Inspection, Normal Range of Motion, Non-Tender, No Pedal Edema, Normal Capillary Refill Peripheral Pulses: 2+: Radial (L), Radial (R), Dorsalis Pedis (L), Dorsalis Pedis (R) Skin: Warm, Dry, Intact Neurological: No New Focal Deficit Psy/Mental Status: Alert, Normal Affect, Normal Mood - Patient Data Lab Results Last 24 hrs: Laboratory Results - last 24 hr 09/02/20 09/02/20 09/02/20 Range/Units 07:55 07:55 07:55 WBC 3.93 L (3.98-10.04) K/mm3 RBC 4.21 (3.98-5.22) M/mm3 Hgb 11.8 (11.2-15.7) gm/dl Hct 34.4 (34.1-44.9) % MCV 81.7 (79.4-94.8) fl MCH 28.0 (25.6-32.2) pg MCHC 34.3 (32.2-35.5) g/dl RDW Std Deviation 38.3 (36.4-46.3) fL Plt Count 99 L D (182-369) K/mm3 MPV 11.7 (9.4-12.3) fl Neut % (Auto) (34.0-71.1) % Lymph % (Auto) (19.3-51.7) % Holt % (Auto) (4.7-12.5) % Eos % (Auto) (0.7-5.8) Baso % (Auto) (0.1-1.2) % Neut # (Auto) (1.56-6.13) K/mm3 Lymph # (Auto) (1.18-3.74) K/mm3 Holt # (Auto) (0.24-0.36) K/mm3 Eos # (Auto) (0.04-0.36) K/mm3 Baso # (Auto) (0.01-0.08) K/mm3 Manual Slide Review D-Dimer, Quantitative 5.20 H (0.19-0.50) mg/L Sodium (136-145) mEq/L Potassium (3.5-5.1) mEq/L Chloride (98-107) mEq/L Carbon Dioxide (21-32) mEq/L Anion Gap (5-15) BUN (7-18) mg/dL Creatinine (0.55-1.02) mg/dL Est Cr Clr Drug Dosing mL/min Estimated GFR (MDRD) (>60) mL/min BUN/Creatinine Ratio (14-18) Glucose (83-115) mg/dL Calcium (8.5-10.1) mg/dL Total Bilirubin (0.2-1.0) mg/dL AST (15-37) U/L ALT (14-59) U/L Alkaline Phosphatase (46-116) U/L Total Protein (6.4-8.2) g/dl Albumin (3.4-5.0) g/dl Globulin gm/dL Albumin/Globulin Ratio (1-2) Procalcitonin 0.32 H ng/mL 09/03/20 09/03/20 Range/Units 05:50 05:50 WBC 8.30 (3.98-10.04) K/mm3 RBC 3.93 L (3.98-5.22) M/mm3 Hgb 11.0 L (11.2-15.7) gm/dl Hct 32.3 L (34.1-44.9) % MCV 82.2 (79.4-94.8) fl MCH 28.0 (25.6-32.2) pg MCHC 34.1 (32.2-35.5) g/dl RDW Std Deviation 38.7 (36.4-46.3) fL Plt Count 133 L (182-369) K/mm3 MPV 11.4 (9.4-12.3) fl Neut % (Auto) 86.9 H (34.0-71.1) % Lymph % (Auto) 6.4 L (19.3-51.7) % Holt % (Auto) 4.6 L (4.7-12.5) % Eos % (Auto) 0.1 L (0.7-5.8) Baso % (Auto) 0.1 (0.1-1.2) % Neut # (Auto) 7.21 H (1.56-6.13) K/mm3 Lymph # (Auto) 0.53 L (1.18-3.74) K/mm3 Holt # (Auto) 0.38 H (0.24-0.36) K/mm3 Eos # (Auto) 0.01 L (0.04-0.36) K/mm3 Baso # (Auto) 0.01 (0.01-0.08) K/mm3 Manual Slide Review Abnormal smear D-Dimer, Quantitative (0.19-0.50) mg/L Sodium 134 L (136-145) mEq/L Potassium 3.2 L (3.5-5.1) mEq/L Chloride 98 (98-107) mEq/L Carbon Dioxide 26 (21-32) mEq/L Anion Gap 13.2 (5-15) BUN 14 (7-18) mg/dL Creatinine 0.9 (0.55-1.02) mg/dL Est Cr Clr Drug Dosing 47.85 mL/min Estimated GFR (MDRD) > 60 (>60) mL/min BUN/Creatinine Ratio 15.6 (14-18) Glucose 134 H (83-115) mg/dL Calcium 7.9 L (8.5-10.1) mg/dL Total Bilirubin 0.7 (0.2-1.0) mg/dL AST 66 H (15-37) U/L ALT 71 H (14-59) U/L Alkaline Phosphatase 66 (46-116) U/L Total Protein 6.4 (6.4-8.2) g/dl Albumin 2.4 L (3.4-5.0) g/dl Globulin 4.0 gm/dL Albumin/Globulin Ratio 0.6 L (1-2) Procalcitonin ng/mL Result Diagrams: 09/03/20 05:50 09/03/20 05:50 Chavez Results Last 24 hrs: Microbiology 09/01/20 23:00 Aerobic Blood Culture - Preliminary Blood - Venous - Lab Draw NO GROWTH AFTER 1 DAY Anaerobic Blood Culture - Preliminary NO GROWTH AFTER 1 DAY 09/01/20 22:50 Aerobic Blood Culture - Preliminary Blood - Venous NO GROWTH AFTER 1 DAY Anaerobic Blood Culture - Preliminary NO GROWTH AFTER 1 DAY Sepsis Event Note - Evaluation Sepsis Screening Result: No Definite Risk - Focused Exam Vital Signs: Vital Signs Temp Pulse Resp BP Pulse Ox Pulse Ox 09/03/20 10:05 93 L 09/03/20 09:01 100.2 F 09/03/20 08:01 100.2 F 99 16 122/59 L 93 L 09/03/20 07:56 100 95 09/03/20 06:59 102 H 93 L 09/03/20 06:50 99.1 F 104 H 16 134/59 L 92 L 09/03/20 02:35 99.0 F 95 18 128/52 L 94 L - Problem List & Annotations (1) Change in mental status SNOMED Code(s): 950550331 Code(s): R41.82 - ALTERED MENTAL STATUS, UNSPECIFIED Status: Acute Priority: High Current Visit: Yes Qualifiers: Altered mental status type: disorientation Qualified Code(s): R41.0 - Disorientation, unspecified (2) Clinical diagnosis of COVID-19 SNOMED Code(s): 523578322, 063683930 Code(s): U07.1 - COVID-19 Status: Acute Priority: High Current Visit: Yes (3) Hypokalemia SNOMED Code(s): 04671054 Code(s): E87.6 - HYPOKALEMIA Status: Acute Priority: High Current Visit: Yes (4) Hyponatremia SNOMED Code(s): 11710892 Code(s): E87.1 - HYPO-OSMOLALITY AND HYPONATREMIA Status: Acute Priority: High Current Visit: Yes (5) Pneumonia due to 2019 novel coronavirus SNOMED Code(s): 492823074206546307 Code(s): U07.1 - COVID-19; J12.82 - PNEUMONIA DUE TO CORONAVIRUS DISEASE 2019 Status: Acute Priority: High Current Visit: Yes - Problem List Review Problem List Initiated/Reviewed/Updated: Yes - My Orders Last 24 Hours: My Active Orders 09/03/20 05:50 C-REACTIVE PROTEIN [CHEM] Stat D-DIMER QUANTITATIVE [COAG] Stat FERRITIN [CHEM] Routine LACTATE DEHYDROGENASE,LDH [CHEM] Stat MAGNESIUM [CHEM] Routine VITAMIN D,25-HYDROXY [CHEM] Routine 09/03/20 08:35 Acetaminophen [TylenoL] 650 mg PO Q4H PRN 09/03/20 09:56 Patient Status [ADT] Routine 09/03/20 10:00 Famotidine [Pepcid] 20 mg PO DAILY Potassium Chloride [Klor-Con M20] 40 meq PO Q4H Isolation [COMM] Stat 09/03/20 10:03 Consult to Time Analysis Clerk [CONS] Routine 09/03/20 10:04 OT Evaluation and Treatment [CONS] Routine PT Evaluation and Treatment [CONS] Routine 09/03/20 10:30 Remdesivir 200 mg Sodium Chloride 0.9% [Normal Saline] 250 ml IV ONETIME 09/03/20 21:00 Melatonin 9 mg PO BEDTIME 09/04/20 09:00 Remdesivir 100 mg Sodium Chloride 0.9% [Normal Saline] 100 ml IV DAILY - Assessment Assessment:: 09/02/20 A: COVID 19 -Refused testing on admission -Diagnosis predicated on chest x-ray showing bilateral pulmonary infiltrates, myalgias arthralgias night sweats, shortness of breath subjective fevers, chills and night sweats. -No acute hypoxic respiratory failure -Has transaminitis at time of presentation -No hx of prior infection/vaccination Hyponatremia -Na 124 on admission, now 130 s/p NS infusion -Suspect patient had intravascular volume depletion consistent with hypovolemic hyponatremia secondary to decreased p.o. intake -May have contibuted to patient's weakness as well as ongoing COVID-19 Transaminitis -Elevated AST/ALT in setting of covid -Normal Tbili, Alk P04 Hypokalemia -Mild 3.1 at time of admission 09/03/20 * Continues to refuse to consent to Covid testing but clinically has Covid 19 * Is now requiring oxygen at 2 L per nasal cannula; is dyspneic at rest; has developed persistent productive cough * Low-grade temp today of 100.2 * Needs strong encouragement to get out of bed and ambulate * Also needing a lot of encouragement to use incentive spirometer and flutter valve * Day 2 of Rocephin, Zithromax and Dexamethasone Labs: * WBC 5.04->3.93->8.30 * Hgb 13.2->11.8->11.0 * Hct 38.2->34.4->32.3 * Plt 183->99->133 * Neut 83.9%->86.9% * D dimer 5.20->4.09 * Na 124->130->134 * K 3.1->3.4->3.2 * Chl 87->95->98 * BUN 20->15->14 * Cre 1.3->1.0->0.9 * GFR 40->54-> >60 * Gluc 116->143->134 * Mg 1.8 * AST 139->92->66 * ALT 108->82->71 * CRP 15.4 * Albumin 3.1->2.4->2.4 * Vitamin D->61.1 * Ferritin->4263 * LDH->502 - Plan Plan:: A: COVID 19 -Refused testing on admission -Diagnosis predicated on chest x-ray showing bilateral pulmonary infiltrates, myalgias arthralgias night sweats, shortness of breath subjective fevers, chills and night sweats. -No acute hypoxic respiratory failure -Has transaminitis at time of presentation -No hx of prior infection/vaccination Hyponatremia -Na 124 on admission, now 130 s/p NS infusion -Suspect patient had intravascular volume depletion consistent with hypovolemic hyponatremia secondary to decreased p.o. intake -May have contibuted to patient's weakness as well as ongoing COVID-19 Transaminitis -Elevated AST/ALT in setting of covid -Normal Tbili, Alk P04 Hypokalemia -Mild 3.1 at time of admission P: -Admit to observation -Rocephin/Azithromycin started in ED, continue -Dexamethasone 6mg daily x 10 days -Hold Remdesivir as no acute hypoxic respiratory failure -For acute hypoxic respiratory failure requiring supplemental oxygen -Discontinue normal saline to avoid over fluid resuscitation in setting of Covid, repeat serum sodium -Trend AST/ALT -K replacement per protocol -DVT prophylaxis -D-dimer to guide DVT prophylaxis in setting of COVID 09/03/20 * RT to oxygen to keep saturations greater than 90% * Continue incentive spirometry and Acapella * Dietitian consult regarding nutritional needs * PT/OT to eval and treat and increase activity * Prone positioning * Continue Rocephin, Zithromax and dexamethasone * Start remdesivir as patient is now requiring O2 at 2 L per nasal cannula * Supplement potassium * Continue to trend labs including D-dimer, CRP, and liver functions * Continue current Lovenox dose as D-dimer is trending down. * Change to inpatient status * Start Pepcid twice daily * Start melatonin at at bedtime * director of community services for discharge planning * Monitor blood sugars as patient is on dexamethasone 6 mg daily Primary Physician: none Code Status: Full Code GI: Pepcid DVT Prophylaxis: Lovenox Patient will likely be here 4 to 5 days due to treatment of Covid.
[2020-09-03 11:57] LABS: VITAMIN D,25-HYDROXY 61.1 ng/ml (30.0-100.0)
[2020-09-03] MEDS: Azithromycin 500 MG in Sodium Chloride 0.9% 250 ML IV SCH (21:01)
[2020-09-03] MEDS: Melatonin 3 MG Tab PO SCH (21:01)
[2020-09-03] MEDS: cefTRIAXone 1 GM in Sodium Chloride 0.9% 100 ML IV SCH (21:01)
[2020-09-03] MEDS: Latanoprost 0.005% Ophth Soln 2.5 ML Bottle EYEBOTH SCH (21:03)
[2020-09-04] MEDS: Famotidine 20 MG Tab PO SCH (09:11)
[2020-09-04] MEDS: REMDESIVIR 100 MG in Sodium Chloride 0.9% 100 ML IV SCH (09:12)
[2020-09-04] MEDS: Dexamethasone 4 MG Tab PO SCH (09:12)
[2020-09-04] MEDS: Enoxaparin 40 MG/0.4 ML Syringe SUBCUT SCH (09:13)
[2020-09-04] MEDS ORDERED: Sodium Chloride 0.9% 100 ML IV SCH (09:45)
[2020-09-04] MEDS ORDERED: Sodium Chloride 0.9% 10 ML Syringe FLUSH PRN (09:45)
[2020-09-04] MEDS ORDERED: Iopamidol 755 Mg/ML 100 ML Bottle IVPUSH ONE (09:45)
[2020-09-04] MEDS ORDERED: Magnesium Sulfate/Water 2 GM/50 ML BAG IV ONE (10:30)
--- NOTE | 2020-09-04 10:54 | CT ---
CT chest Technique: Multiple axial sections through the chest were obtained. Intravenous contrast was utilized. Study has been performed as a pulmonary angiogram protocol. Comparison: Prior chest x-ray of 09/01/20. Findings: Pulmonary arteries are fairly well opacified. No filling defects are seen to indicate pulmonary embolism. Thoracic aorta shows mild atherosclerotic change without aneurysm. Scattered lymph nodes are seen within the mediastinum which are slightly numerous most likely relating to the COVID pneumonia. No axillary adenopathy is seen. No pericardial thickening is seen. Visualized upper abdominal structures show nothing acute. Diffuse parenchymal change is seen throughout both lungs. Findings are compatible with fairly prominent COVID pneumonia. Findings have significantly increased from prior chest x-ray. Bone window settings were reviewed which show slight degenerative change scattered within the spine. No acute osseous abnormality is appreciated. Impression: 1. Slightly prominent lymph nodes within the mediastinum most likely relating to COVID pneumonia. 2. Diffuse parenchymal change within both lungs compatible with fairly severe COVID pneumonia. 3. No findings of pulmonary embolism. Diagnostic code #3
--- NOTE | 2020-09-04 11:11 | PCM.PN ---
- General Info Date of Service: 09/04/20 Admission Dx/Problem (Free Text): Admission Diagnosis/Problem Admission Diagnosis/Problem Altered mental status Subjective Update: Melly's respiratory status has declined slightly since yesterday. She was up to 6 L per nasal cannula last night throughout the night and now she is currently at 3 L per nasal cannula. Per the nurses report patient's O2 saturations drop with any change in activity such as getting up to the chair for meals. They state they drop into the low 80s. Patient denies feeling short of breath with this however. She denies a cough however during my assessment she was coughing a fair amount and it is a coarse wet sounding cough. She does have increased crackles noted on the left and diminished sounds on the right. I did speak with her daughter this morning over the phone and they were requesting that Melly be transferred to [facility] as [facility] allows visitors to the Covid patients. I had a lengthy conversation with the daughter regarding that I did not feel that I would be able to find an accepting doctor for her transfer. Melly also did mention that they may be would just take her out of the hospital AGAINST MEDICAL ADVICE. I again told her that this would not be a good idea as Melly's respiratory status has declined since yesterday and I would not orders discharging her as this would be a huge liability and I do not feel that it would be in her best interest to be discharged to home at this time. I did call [facility] and spoke with the hospitalist, Dr. Dee, and he declined to accept her in transfer as he states that there is no medical necessity and that all of their medical beds are full at [facility] at this time and she does not require a higher level of care. He also states that he would want her to have a Covid test prior to transfer and she has been refusing this since she has been in the hospital. He stated that we are doing everything that they would be doing there regarding her treatment at this time. I then phoned the patient's daughter back and told her that Dr. Dee would not accept Melly in transport. She then mentioned that may be they would come out here and have her discharged to home on home oxygen. I again reiterated that I would not discharge her as I do not feel she is safe and it is not in her best interest to be discharged from the hospital at this time. She was again very frustrated as she feels that Dr. Be and myself are not on the same page as when she spoke with him last night. I re-informed her that Melly's respiratory status has since declined since last night when she spoke with Dr. Be and that Dr. Be is very much aware of the patient's status and we are on the same page and in agreement when it comes to her plan of care. Melly's daughter then just asks that when the physicians wound on her mom that she could be face timed while the assessment is being completed by the physician or midlevel. I agreed that I would pass this information along to the nursing staff so that from now on they can be present over video conference during physician rounds. Functional Status: Reports: Pain Controlled, Tolerating Diet, Ambulating (With physical therapy however is refusing to use a walker), Urinating, Incentive Spirometry (Needs encouragement) - Review of Systems General: Reports: No Symptoms HEENT: Reports: Glasses. Denies: Headaches Pulmonary: Denies: Shortness of Breath (Patient denies however she is dyspneic with activity), Pleuritic Chest Pain, Cough (Patient denies however she was coughing during my physical assessment), Sputum, Wheezing Cardiovascular: Reports: Dyspnea on Exertion (Patient denies however she is visibly dyspneic on exertion). Denies: Chest Pain, Palpitations, Edema Gastrointestinal: Reports: No Symptoms Genitourinary: Reports: No Symptoms Musculoskeletal: Reports: No Symptoms Skin: Reports: No Symptoms Neurological: Reports: Confusion (Likely due to Covid). Denies: Headache Psychiatric: Reports: Confusion (Likely due to Covid) - Patient Data Vitals - Most Recent: Last Vital Signs Temp 98.4 F 09/04/20 08:15 Pulse 97 09/04/20 08:15 Resp 20 09/04/20 08:15 BP 136/75 09/04/20 09:02 Pulse Ox 94 L 09/04/20 10:23 Weight - Most Recent: 181 lb 1.6 oz I&O - Last 24 Hours: Intake & Output 09/03/20 09/04/20 09/04/20 22:59 06:59 14:59 Intake Total 920 1350 Output Total 1400 Balance -480 1350 Lab Results Last 24 Hours: Laboratory Results - last 24 hr 09/03/20 09/03/20 09/03/20 Range/Units 05:50 05:50 05:50 WBC (3.98-10.04) K/mm3 RBC (3.98-5.22) M/mm3 Hgb (11.2-15.7) gm/dl Hct (34.1-44.9) % MCV (79.4-94.8) fl MCH (25.6-32.2) pg MCHC (32.2-35.5) g/dl RDW Std Deviation (36.4-46.3) fL Plt Count (182-369) K/mm3 MPV (9.4-12.3) fl Neut % (Auto) (34.0-71.1) % Lymph % (Auto) (19.3-51.7) % [place] % (Auto) (4.7-12.5) % Eos % (Auto) (0.7-5.8) Baso % (Auto) (0.1-1.2) % Neut # (Auto) (1.56-6.13) K/mm3 Lymph # (Auto) (1.18-3.74) K/mm3 [place] # (Auto) (0.24-0.36) K/mm3 Eos # (Auto) (0.04-0.36) K/mm3 Baso # (Auto) (0.01-0.08) K/mm3 Manual Slide Review Sodium (136-145) mEq/L Potassium (3.5-5.1) mEq/L Chloride (98-107) mEq/L Carbon Dioxide (21-32) mEq/L Anion Gap (5-15) BUN (7-18) mg/dL Creatinine (0.55-1.02) mg/dL Est Cr Clr Drug Dosing mL/min Estimated GFR (MDRD) (>60) mL/min BUN/Creatinine Ratio (14-18) Glucose (83-115) mg/dL Calcium (8.5-10.1) mg/dL Magnesium (1.8-2.4) mg/dl Ferritin 4263 H (8-252) ng/ml Total Bilirubin (0.2-1.0) mg/dL AST (15-37) U/L ALT (14-59) U/L Alkaline Phosphatase (46-116) U/L Lactate Dehydrogenase 502 H (81-234) U/L Total Protein (6.4-8.2) g/dl Albumin (3.4-5.0) g/dl Globulin gm/dL Albumin/Globulin Ratio (1-2) Vitamin D 25-Hydroxy 61.1 (30.0-100.0) ng/ml 09/04/20 09/04/20 Range/Units 06:06 06:06 WBC 8.14 (3.98-10.04) K/mm3 RBC 3.72 L (3.98-5.22) M/mm3 Hgb 10.5 L (11.2-15.7) gm/dl Hct 31.4 L (34.1-44.9) % MCV 84.4 (79.4-94.8) fl MCH 28.2 (25.6-32.2) pg MCHC 33.4 (32.2-35.5) g/dl RDW Std Deviation 40.4 (36.4-46.3) fL Plt Count 185 (182-369) K/mm3 MPV 10.0 (9.4-12.3) fl Neut % (Auto) 75.2 H (34.0-71.1) % Lymph % (Auto) 11.2 L (19.3-51.7) % [place] % (Auto) 4.8 (4.7-12.5) % Eos % (Auto) 0 L (0.7-5.8) Baso % (Auto) 0.4 (0.1-1.2) % Neut # (Auto) 6.13 (1.56-6.13) K/mm3 Lymph # (Auto) 0.91 L (1.18-3.74) K/mm3 [place] # (Auto) 0.39 H (0.24-0.36) K/mm3 Eos # (Auto) 0.00 L (0.04-0.36) K/mm3 Baso # (Auto) 0.03 (0.01-0.08) K/mm3 Manual Slide Review Abnormal smear Sodium 133 L (136-145) mEq/L Potassium 3.8 (3.5-5.1) mEq/L Chloride 97 L (98-107) mEq/L Carbon Dioxide 26 (21-32) mEq/L Anion Gap 13.8 (5-15) BUN 17 (7-18) mg/dL Creatinine 0.9 (0.55-1.02) mg/dL Est Cr Clr Drug Dosing 47.85 mL/min Estimated GFR (MDRD) > 60 (>60) mL/min BUN/Creatinine Ratio 18.9 H (14-18) Glucose 107 (83-115) mg/dL Calcium 7.3 L (8.5-10.1) mg/dL Magnesium 1.6 L (1.8-2.4) mg/dl Ferritin (8-252) ng/ml Total Bilirubin 0.7 (0.2-1.0) mg/dL AST 57 H (15-37) U/L ALT 58 (14-59) U/L Alkaline Phosphatase 61 (46-116) U/L Lactate Dehydrogenase (81-234) U/L Total Protein 5.9 L (6.4-8.2) g/dl Albumin 2.2 L (3.4-5.0) g/dl Globulin 3.7 gm/dL Albumin/Globulin Ratio 0.6 L (1-2) Vitamin D 25-Hydroxy (30.0-100.0) ng/ml Chavez Results Last 24 Hours: Microbiology 09/01/20 23:00 Aerobic Blood Culture - Preliminary Blood - Venous - Lab Draw NO GROWTH AFTER 2 DAYS Anaerobic Blood Culture - Preliminary NO GROWTH AFTER 2 DAYS 09/01/20 22:50 Aerobic Blood Culture - Preliminary Blood - Venous NO GROWTH AFTER 2 DAYS Anaerobic Blood Culture - Preliminary NO GROWTH AFTER 2 DAYS Med Orders - Current: Current Medications Acetaminophen (Acetaminophen 325 Mg Tab) 650 mg PO Q4H PRN PRN Reason: Fever Last Admin: 09/03/20 09:01 Dose: 650 mg Documented by: Albuterol (Albuterol 6.7 Gm Inhaler) 0 gm INH Q2H PRN PRN Reason: shortness of breath Dexamethasone (Dexamethasone 4 Mg Tab) 6 mg PO DAILY [facility] Last Admin: 09/04/20 09:12 Dose: 6 mg Documented by: Enoxaparin Sodium (Enoxaparin 40 Mg/0.4 Ml Syringe) 40 mg SUBCUT BID [facility] Last Admin: 09/04/20 09:13 Dose: 40 mg Documented by: Famotidine (Famotidine 20 Mg Tab) 20 mg PO DAILY [facility] Last Admin: 09/04/20 09:11 Dose: 20 mg Documented by: Ceftriaxone Sodium 1 gm/ (Sodium Chloride) 100 mls @ 200 mls/hr IV Q24H [facility] Last Admin: 09/03/20 21:01 Dose: 200 mls/hr Documented by: Azithromycin 500 mg/ Sodium (Chloride) 250 mls @ 250 mls/hr IV Q24H [facility] Last Admin: 09/03/20 21:01 Dose: 250 mls/hr Documented by: Remdesivir 100 mg/ Sodium (Chloride) 100 mls @ 100 mls/hr IV DAILY [facility] Stop: 09/07/20 09:59 Last Admin: 09/04/20 09:12 Dose: 100 mls/hr Documented by: Magnesium Sulfate (Magnesium Sulfate In Water 2 Gm/50 Ml) 2 gm in 50 mls @ 25 mls/hr IV ONETIME ONE Stop: 09/04/20 12:29 Last Admin: 09/04/20 10:50 Dose: 25 mls/hr Documented by: Sodium Chloride (Normal Saline) 100 mls @ 75 mls/hr IV ASDIRECTED YARELI Stop: 09/04/20 13:00 Last Admin: 09/04/20 10:32 Dose: 75 mls/hr Documented by: Latanoprost (Latanoprost 0.005% Ophth Soln 2.5 Ml Bottle) 0 ml EYEBOTH BEDTIME [facility] Last Admin: 09/03/20 21:03 Dose: 1 drop Documented by: Melatonin (Melatonin 3 Mg Tab) 9 mg PO BEDTIME [facility] Last Admin: 09/03/20 21:01 Dose: 9 mg Documented by: Sodium Chloride (Sodium Chloride 0.9% 10 Ml Syringe) 10 ml FLUSH ASDIRECTED PRN PRN Reason: Keep Vein Open Last Admin: 09/01/20 23:10 Dose: 10 ml Documented by: Sodium Chloride (Sodium Chloride 0.9% 10 Ml Syringe) 10 ml FLUSH ONETIME PRN PRN Reason: IV FLUSH Stop: 09/04/20 18:00 Discontinued Medications Azithromycin (Azithromycin 250 Mg Tab) 500 mg PO ONETIME ONE Stop: 09/02/20 01:12 Last Admin: 09/02/20 01:44 Dose: 500 mg Documented by: Dexamethasone (Dexamethasone 4 Mg Tab) 6 mg PO ONETIME ONE Stop: 09/02/20 01:11 Last Admin: 09/02/20 01:44 Dose: 6 mg Documented by: Enoxaparin Sodium (Enoxaparin 40 Mg/0.4 Ml Syringe) 40 mg SUBCUT DAILY [facility] Last Admin: 09/02/20 11:36 Dose: Not Given Documented by: Lactated Ringer's (Ringers, Lactated) 1,000 mls @ 999 mls/hr IV .BOLUS ONE Stop: 09/01/20 23:25 Last Admin: 09/01/20 23:10 Dose: 999 mls/hr Documented by: Ceftriaxone Sodium 1 gm/ (Sodium Chloride) 100 mls @ 200 mls/hr IV ONETIME ONE Stop: 09/02/20 00:18 Last Admin: 09/02/20 18:17 Dose: Not Given Documented by: Sodium Chloride (Normal Saline) 1,000 mls @ 999 mls/hr IV ONETIME ONE Stop: 09/02/20 00:52 Last Admin: 09/02/20 00:21 Dose: 999 mls/hr Documented by: Ceftriaxone Sodium 1 gm/ (Sodium Chloride) 100 mls @ 200 mls/hr IV ONETIME ONE Stop: 09/02/20 00:41 Last Admin: 09/02/20 00:21 Dose: 200 mls/hr Documented by: Sodium Chloride (Normal Saline) 1,000 mls @ 150 mls/hr IV ASDIRECTED YARELI Sodium Chloride (Normal Saline) 1,000 mls @ 150 mls/hr IV ASDIRECTED YARELI Last Admin: 09/02/20 02:41 Dose: 150 mls/hr Documented by: Remdesivir 200 mg/ Sodium (Chloride) 250 mls @ 250 mls/hr IV ONETIME ONE Stop: 09/03/20 11:29 Last Admin: 09/03/20 10:31 Dose: 250 mls/hr Documented by: Iopamidol (Iopamidol 755 Mg/Ml 100 Ml Bottle) 100 ml IVPUSH ONETIME ONE Stop: 09/04/20 09:46 Last Admin: 09/04/20 10:32 Dose: 100 ml Documented by: Potassium Chloride (Potassium Chloride 20 Meq Tab.Er) 40 meq PO ONETIME ONE Stop: 09/02/20 04:53 Last Admin: 09/02/20 05:05 Dose: 40 meq Documented by: Potassium Chloride (Potassium Chloride 20 Meq Tab.Er) 40 meq PO Q4H YARELI Stop: 09/03/20 14:01 Last Admin: 09/03/20 14:36 Dose: 40 meq Documented by: - Exam Quality Assessment: Supplemental Oxygen (3 L per nasal cannula), DVT Prophylaxis (Lovenox) General: Alert, Mild Distress. No: Oriented (Does not know which city she has been) HEENT: Pupils Equal, Mucous Membr. Moist/[place] Neck: Supple, Trachea Midline Lungs: Decreased Breath Sounds (On the right), Crackles (On the left). No: Clear to Auscultation, Normal Respiratory Effort, Wheezing Cardiovascular: Regular Rate, Regular Rhythm, Murmurs (Grade 2 systolic murmur noted) GI/Abdominal Exam: Normal Bowel Sounds, Soft, Non-Tender, No Distention (Female) Exam: Deferred Back Exam: Normal Inspection, Full Range of Motion Extremities: Normal Inspection, Normal Range of Motion, Non-Tender, No Pedal Edema, Normal Capillary Refill Peripheral Pulses: 2+: Radial (L), Radial (R) Skin: Warm, Dry, Intact Neurological: No New Focal Deficit Psy/Mental Status: Alert, Normal Affect, Normal Mood - Patient Data Lab Results Last 24 hrs: Laboratory Results - last 24 hr 09/03/20 09/03/20 09/03/20 Range/Units 05:50 05:50 05:50 WBC (3.98-10.04) K/mm3 RBC (3.98-5.22) M/mm3 Hgb (11.2-15.7) gm/dl Hct (34.1-44.9) % MCV (79.4-94.8) fl MCH (25.6-32.2) pg MCHC (32.2-35.5) g/dl RDW Std Deviation (36.4-46.3) fL Plt Count (182-369) K/mm3 MPV (9.4-12.3) fl Neut % (Auto) (34.0-71.1) % Lymph % (Auto) (19.3-51.7) % [place] % (Auto) (4.7-12.5) % Eos % (Auto) (0.7-5.8) Baso % (Auto) (0.1-1.2) % Neut # (Auto) (1.56-6.13) K/mm3 Lymph # (Auto) (1.18-3.74) K/mm3 [place] # (Auto) (0.24-0.36) K/mm3 Eos # (Auto) (0.04-0.36) K/mm3 Baso # (Auto) (0.01-0.08) K/mm3 Manual Slide Review Sodium (136-145) mEq/L Potassium (3.5-5.1) mEq/L Chloride (98-107) mEq/L Carbon Dioxide (21-32) mEq/L Anion Gap (5-15) BUN (7-18) mg/dL Creatinine (0.55-1.02) mg/dL Est Cr Clr Drug Dosing mL/min Estimated GFR (MDRD) (>60) mL/min BUN/Creatinine Ratio (14-18) Glucose (83-115) mg/dL Calcium (8.5-10.1) mg/dL Magnesium (1.8-2.4) mg/dl Ferritin 4263 H (8-252) ng/ml Total Bilirubin (0.2-1.0) mg/dL AST (15-37) U/L ALT (14-59) U/L Alkaline Phosphatase (46-116) U/L Lactate Dehydrogenase 502 H (81-234) U/L Total Protein (6.4-8.2) g/dl Albumin (3.4-5.0) g/dl Globulin gm/dL Albumin/Globulin Ratio (1-2) Vitamin D 25-Hydroxy 61.1 (30.0-100.0) ng/ml 09/04/20 09/04/20 Range/Units 06:06 06:06 WBC 8.14 (3.98-10.04) K/mm3 RBC 3.72 L (3.98-5.22) M/mm3 Hgb 10.5 L (11.2-15.7) gm/dl Hct 31.4 L (34.1-44.9) % MCV 84.4 (79.4-94.8) fl MCH 28.2 (25.6-32.2) pg MCHC 33.4 (32.2-35.5) g/dl RDW Std Deviation 40.4 (36.4-46.3) fL Plt Count 185 (182-369) K/mm3 MPV 10.0 (9.4-12.3) fl Neut % (Auto) 75.2 H (34.0-71.1) % Lymph % (Auto) 11.2 L (19.3-51.7) % [place] % (Auto) 4.8 (4.7-12.5) % Eos % (Auto) 0 L (0.7-5.8) Baso % (Auto) 0.4 (0.1-1.2) % Neut # (Auto) 6.13 (1.56-6.13) K/mm3 Lymph # (Auto) 0.91 L (1.18-3.74) K/mm3 [place] # (Auto) 0.39 H (0.24-0.36) K/mm3 Eos # (Auto) 0.00 L (0.04-0.36) K/mm3 Baso # (Auto) 0.03 (0.01-0.08) K/mm3 Manual Slide Review Abnormal smear Sodium 133 L (136-145) mEq/L Potassium 3.8 (3.5-5.1) mEq/L Chloride 97 L (98-107) mEq/L Carbon Dioxide 26 (21-32) mEq/L Anion Gap 13.8 (5-15) BUN 17 (7-18) mg/dL Creatinine 0.9 (0.55-1.02) mg/dL Est Cr Clr Drug Dosing 47.85 mL/min Estimated GFR (MDRD) > 60 (>60) mL/min BUN/Creatinine Ratio 18.9 H (14-18) Glucose 107 (83-115) mg/dL Calcium 7.3 L (8.5-10.1) mg/dL Magnesium 1.6 L (1.8-2.4) mg/dl Ferritin (8-252) ng/ml Total Bilirubin 0.7 (0.2-1.0) mg/dL AST 57 H (15-37) U/L ALT 58 (14-59) U/L Alkaline Phosphatase 61 (46-116) U/L Lactate Dehydrogenase (81-234) U/L Total Protein 5.9 L (6.4-8.2) g/dl Albumin 2.2 L (3.4-5.0) g/dl Globulin 3.7 gm/dL Albumin/Globulin Ratio 0.6 L (1-2) Vitamin D 25-Hydroxy (30.0-100.0) ng/ml Result Diagrams: 09/04/20 06:06 09/04/20 06:06 Chavez Results Last 24 hrs: Microbiology 09/01/20 23:00 Aerobic Blood Culture - Preliminary Blood - Venous - Lab Draw NO GROWTH AFTER 2 DAYS Anaerobic Blood Culture - Preliminary NO GROWTH AFTER 2 DAYS 09/01/20 22:50 Aerobic Blood Culture - Preliminary Blood - Venous NO GROWTH AFTER 2 DAYS Anaerobic Blood Culture - Preliminary NO GROWTH AFTER 2 DAYS Sepsis Event Note - Evaluation Sepsis Screening Result: No Definite Risk - Focused Exam Vital Signs: Vital Signs Temp Pulse Resp BP Pulse Ox Pulse Ox 09/04/20 10:23 94 L 09/04/20 09:02 136/75 09/04/20 08:15 98.4 F 97 20 93 L 09/04/20 07:46 95 09/04/20 06:04 94 L 09/04/20 04:40 98.6 F 100 20 147/73 H 94 L 09/03/20 23:53 98.2 F 114 H 18 148/75 H 93 L - Problem List & Annotations (1) Change in mental status SNOMED Code(s): 558307211 Code(s): R41.82 - ALTERED MENTAL STATUS, UNSPECIFIED Status: Acute Priori ty: High Current Visit: Yes Qualifiers: Altered mental status type: disorientation Qualified Code(s): R41.0 - Disorientation, unspecified (2) Clinical diagnosis of COVID-19 SNOMED Code(s): 294586977, 282841233 Code(s): U07.1 - COVID-19 Status: Acute Priority: High Current Visit: Yes (3) Hypokalemia SNOMED Code(s): 13573067 Code(s): E87.6 - HYPOKALEMIA Status: Acute Priority: High Current Visit: Yes (4) Hyponatremia SNOMED Code(s): 28611278 Code(s): E87.1 - HYPO-OSMOLALITY AND HYPONATREMIA Status: Acute Priority: High Current Visit: Yes (5) Pneumonia due to 2019 novel coronavirus SNOMED Code(s): 975637279944969359 Code(s): U07.1 - COVID-19; J12.82 - PNEUMONIA DUE TO CORONAVIRUS DISEASE 2019 Status: Acute Priority: High Current Visit: Yes - Problem List Review Problem List Initiated/Reviewed/Updated: Yes - My Orders Last 24 Hours: My Active Orders 09/03/20 09:56 Patient Status [ADT] Routine 09/03/20 10:00 Famotidine [Pepcid] 20 mg PO DAILY Isolation [COMM] Stat 09/03/20 10:03 Consult to Green Building Design Specialist [CONS] Routine 09/03/20 10:04 OT Evaluation and Treatment [CONS] Routine PT Evaluation and Treatment [CONS] Routine 09/03/20 Dinner Regular Diet [DIET] 09/03/20 21:00 Melatonin 9 mg PO BEDTIME 09/04/20 09:00 Remdesivir 100 mg Sodium Chloride 0.9% [Normal Saline] 100 ml IV DAILY 09/04/20 09:43 CTA Chest W WO Contrast [Ang Chest] [CT] Routine 09/04/20 10:30 Magnesium Sulfate/Water [Magnesium Sulfate in Water 2 GM/50 ML] 2 gm in 50 ml IV ONETIME 09/05/20 05:11 CRP [C-REACTIVE PROTEIN] [CHEM] Q48H D-DIMER QUANTITATIVE [COAG] Q48H - Assessment Assessment:: 09/02/20 A: COVID 19 -Refused testing on admission -Diagnosis predicated on chest x-ray showing bilateral pulmonary infiltrates, myalgias arthralgias night sweats, shortness of breath subjective fevers, chills and night sweats. -No acute hypoxic respiratory failure -Has transaminitis at time of presentation -No hx of prior infection/vaccination Hyponatremia -Na 124 on admission, now 130 s/p NS infusion -Suspect patient had intravascular volume depletion consistent with hypovolemic hyponatremia secondary to decreased p.o. intake -May have contibuted to patient's weakness as well as ongoing COVID-19 Transaminitis -Elevated AST/ALT in setting of covid -Normal Tbili, Alk P04 Hypokalemia -Mild 3.1 at time of admission 09/03/20 * Continues to refuse to consent to Covid testing but clinically has Covid 19 * Is now requiring oxygen at 2 L per nasal cannula; is dyspneic at rest; has developed persistent productive cough * Low-grade temp today of 100.2 * Needs strong encouragement to get out of bed and ambulate * Also needing a lot of encouragement to use incentive spirometer and flutter valve * Day 2 of Rocephin, Zithromax and Dexamethasone Labs: * WBC 5.04->3.93->8.30 * Hgb 13.2->11.8->11.0 * Hct 38.2->34.4->32.3 * Plt 183->99->133 * Neut 83.9%->86.9% * D dimer 5.20->4.09 * Na 124->130->134 * K 3.1->3.4->3.2 * Chl 87->95->98 * BUN 20->15->14 * Cre 1.3->1.0->0.9 * GFR 40->54-> >60 * Gluc 116->143->134 * Mg 1.8 * AST 139->92->66 * ALT 108->82->71 * CRP 15.4 * Albumin 3.1->2.4->2.4 * Vitamin D->61.1 * Ferritin->4263 * LDH->502 09/04/20 -Patient's family is requesting that she be transferred to [facility] in [place]. I did speak with the hospitalist, Dr. Dee, and he did declined to accept her in transfer as this would just be a lateral transfer is and there is no medical necessity or higher need of care. Patient is also continuing to refuse having Covid test. -Respiratory status did decline overnight as the patient was increased to 6 L of oxygen per nasal cannula. She is currently back down to 3 L oxygen per nasal cannula however with any activity her O2 saturations decreased into the low 80s. -Has been afebrile the past 24 hours -Day 3 of Rocephin, Zithromax, and dexamethasone -Day 2 of remdesivir -CT of the chest radiologist impression: 1. Slightly prominent lymph nodes within the mediastinum most likely relating to Covid pneumonia. 2. Diffuse parenchymal change within both lungs compatible with fairly severe Covid pneumonia. 3. No findings of pulmonary embolism. Labs: * WBC 5.04->3.93->8.30->8.14 * Hgb 13.2->11.8->11.0->10.5 * Hct 38.2->34.4->32.3->31.4 * Plt 183->99->133->185 * Neut 83.9%->86.9%->75.2 * D dimer 5.20->4.09 * Na 124->130->134->133 * K 3.1->3.4->3.2->3.8 * Chl 87->95->98->97 * BUN 20->15->14->17 * Cre 1.3->1.0->0.9->0.9 * GFR 40->54-> >60 * Gluc 116->143->134->107 * Mg 1.8->1.6 * AST 139->92->66->57 * ALT 108->82->71->58 * CRP 15.4 * Albumin 3.1->2.4->2.4->2.2 * Vitamin D->61.1 * Ferritin->4263 * LDH->502 - Plan Plan:: A: COVID 19 -Refused testing on admission -Diagnosis predicated on chest x-ray showing bilateral pulmonary infiltrates, myalgias arthralgias night sweats, shortness of breath subjective fevers, chills and night sweats. -No acute hypoxic respiratory failure -Has transaminitis at time of presentation -No hx of prior infection/vaccination Hyponatremia -Na 124 on admission, now 130 s/p NS infusion -Suspect patient had intravascular volume depletion consistent with hypovolemic hyponatremia secondary to decreased p.o. intake -May have contibuted to patient's weakness as well as ongoing COVID-19 Transaminitis -Elevated AST/ALT in setting of covid -Normal Tbili, Alk P04 Hypokalemia -Mild 3.1 at time of admission P: -Admit to observation -Rocephin/Azithromycin started in ED, continue -Dexamethasone 6mg daily x 10 days -Hold Remdesivir as no acute hypoxic respiratory failure -For acute hypoxic respiratory failure requiring supplemental oxygen -Discontinue normal saline to avoid over fluid resuscitation in setting of Covid, repeat serum sodium -Trend AST/ALT -K replacement per protocol -DVT prophylaxis -D-dimer to guide DVT prophylaxis in setting of COVID 09/03/20 * RT to oxygen to keep saturations greater than 90% * Continue incentive spirometry and Acapella * Dietitian consult regarding nutritional needs * PT/OT to eval and treat and increase activity * Prone positioning * Continue Rocephin, Zithromax and dexamethasone * Start remdesivir as patient is now requiring O2 at 2 L per nasal cannula * Supplement potassium * Continue to trend labs including D-dimer, CRP, and liver functions * Continue current Lovenox dose as D-dimer is trending down. * Change to inpatient status * Start Pepcid twice daily * Start melatonin at at bedtime * student services coordinator for discharge planning * Monitor blood sugars as patient is on dexamethasone 6 mg daily Primary Physician: none Code Status: Full Code GI: Pepcid DVT Prophylaxis: Lovenox Patient will likely be here 4 to 5 days due to treatment of Covid. 09/04/20 * RT to oxygen to keep saturations greater than 90% * Continue incentive spirometry and Acapella * Dietitian consult regarding nutritional needs * PT/OT to eval and treat and increase activity * Prone positioning * Continue Rocephin, Zithromax and dexamethasone * Remdesivir day 2 * Supplement magnesium * Continue to trend labs including D-dimer, CRP, and liver functions * Continue current Lovenox dose as CTA did not show PE * student services coordinator for discharge planning * Monitor blood sugars as patient is on dexamethasone 6 mg daily Primary Physician: none Code Status: Full Code GI: Pepcid DVT Prophylaxis: Lovenox Patient will likely be here 4 to 5 days due to treatment of Covid.
[2020-09-04] MEDS: Acetaminophen 325 MG Tab PO PRN (11:22)
[2020-09-04] MEDS ORDERED: Diltiazem 50 MG/10 ML SDV IVPUSH ONE (20:32)
[2020-09-04] MEDS ORDERED: Diltiazem IR 30 MG Tab PO SCH (21:00)
[2020-09-04] MEDS: Azithromycin 500 MG in Sodium Chloride 0.9% 250 ML IV SCH (21:25)
[2020-09-04] MEDS: cefTRIAXone 1 GM in Sodium Chloride 0.9% 100 ML IV SCH (21:25)
[2020-09-04] MEDS: Melatonin 3 MG Tab PO SCH (21:26)
[2020-09-04] MEDS: Enoxaparin 80 MG/0.8 ML Syringe SUBCUT SCH (21:31)
[2020-09-04] MEDS: Latanoprost 0.005% Ophth Soln 2.5 ML Bottle EYEBOTH SCH (21:32)
[2020-09-04] MEDS ORDERED: Diltiazem 100 MG in Sodium Chloride 0.9% 100 ML IV SCH (22:15)
[2020-09-05] MEDS ORDERED: Diltiazem IR 30 MG Tab PO SCH (06:45)
[2020-09-05] MEDS: Enoxaparin 80 MG/0.8 ML Syringe SUBCUT SCH ×2 (08:12→20:05)
[2020-09-05] MEDS: Dexamethasone 4 MG Tab PO SCH (08:13)
[2020-09-05] MEDS: Famotidine 20 MG Tab PO SCH (08:13)
[2020-09-05] MEDS: REMDESIVIR 100 MG in Sodium Chloride 0.9% 100 ML IV SCH (08:43)
--- NOTE | 2020-09-05 10:14 | PCM.PN ---
- General Info Date of Service: 09/05/20 Subjective Update: Overnight patient transferred to the intensive care unit secondary to atrial fibrillation with rapid ventricular response. Patient's heart rate was in the 150s prior to initiation of diltiazem infusion. Patient's heart rate was controlled to less than 100 on diltiazem drip. This morning patient started on Cardizem 30 mg p.o. every 6 hours, however has heart rate in the 110s to 130s. Otherwise patient is on room air currently in no acute distress. Functional Status: Reports: Pain Controlled - Review of Systems General: Reports: No Symptoms HEENT: Reports: No Symptoms Pulmonary: Reports: No Symptoms Cardiovascular: Reports: No Symptoms Gastrointestinal: Reports: No Symptoms Genitourinary: Reports: No Symptoms Musculoskeletal: Reports: No Symptoms Skin: Reports: No Symptoms Neurological: Reports: No Symptoms Psychiatric: Reports: No Symptoms - Patient Data Vitals - Most Recent: Last Vital Signs Temp 97.7 F 09/05/20 08:00 Pulse 117 H 09/05/20 08:00 Resp 18 09/05/20 08:00 BP 110/72 09/05/20 08:00 Pulse Ox 93 L 09/05/20 08:00 Weight - Most Recent: 180 lb 4.8 oz I&O - Last 24 Hours: Intake & Output 09/04/20 09/05/20 09/05/20 22:59 06:59 14:59 Intake Total 300 518 Output Total 215 250 Balance 300 303 -250 Lab Results Last 24 Hours: Laboratory Results - last 24 hr 09/05/20 09/05/20 Range/Units 05:55 05:55 D-Dimer, Quantitative 2.08 H (0.19-0.50) mg/L Sodium 139 (136-145) mEq/L Potassium 3.5 (3.5-5.1) mEq/L Chloride 100 (98-107) mEq/L Carbon Dioxide 30 (21-32) mEq/L Anion Gap 12.5 (5-15) BUN 17 (7-18) mg/dL Creatinine 0.8 (0.55-1.02) mg/dL Est Cr Clr Drug Dosing 53.83 mL/min Estimated GFR (MDRD) > 60 (>60) mL/min BUN/Creatinine Ratio 21.3 H (14-18) Glucose 143 H (83-115) mg/dL Calcium 7.6 L (8.5-10.1) mg/dL Magnesium 1.9 (1.8-2.4) mg/dl Total Bilirubin 0.7 (0.2-1.0) mg/dL AST 58 H (15-37) U/L ALT 60 H (14-59) U/L Alkaline Phosphatase 64 (46-116) U/L C-Reactive Protein 11.7 H* (<1.0) mg/dL Total Protein 6.3 L (6.4-8.2) g/dl Albumin 2.2 L (3.4-5.0) g/dl Globulin 4.1 gm/dL Albumin/Globulin Ratio 0.5 L (1-2) Chavez Results Last 24 Hours: Microbiology 09/01/20 23:00 Aerobic Blood Culture - Preliminary Blood - Venous - Lab Draw NO GROWTH AFTER 3 DAYS Anaerobic Blood Culture - Preliminary NO GROWTH AFTER 3 DAYS 09/01/20 22:50 Aerobic Blood Culture - Preliminary Blood - Venous NO GROWTH AFTER 3 DAYS Anaerobic Blood Culture - Preliminary NO GROWTH AFTER 3 DAYS Med Orders - Current: Current Medications Acetaminophen (Acetaminophen 325 Mg Tab) 650 mg PO Q4H PRN PRN Reason: Fever Last Admin: 09/04/20 11:22 Dose: 650 mg Documented by: Albuterol (Albuterol 6.7 Gm Inhaler) 0 gm INH Q2H PRN PRN Reason: shortness of breath Dexamethasone (Dexamethasone 4 Mg Tab) 6 mg PO DAILY [facility] Last Admin: 09/05/20 08:13 Dose: 6 mg Documented by: Diltiazem HCl (Diltiazem Ir 60 Mg Tab) 60 mg PO Q6HR [facility] Enoxaparin Sodium (Enoxaparin 80 Mg/0.8 Ml Syringe) 80 mg SUBCUT Q12H [facility] Last Admin: 09/05/20 08:12 Dose: 80 mg Documented by: Famotidine (Famotidine 20 Mg Tab) 20 mg PO DAILY [facility] Last Admin: 09/05/20 08:13 Dose: 20 mg Documented by: Ceftriaxone Sodium 1 gm/ (Sodium Chloride) 100 mls @ 200 mls/hr IV Q24H [facility] Last Admin: 09/04/20 21:25 Dose: 200 mls/hr Documented by: Azithromycin 500 mg/ Sodium (Chloride) 250 mls @ 250 mls/hr IV Q24H [facility] Last Admin: 09/04/20 21:25 Dose: 250 mls/hr Documented by: Remdesivir 100 mg/ Sodium (Chloride) 100 mls @ 100 mls/hr IV DAILY [facility] Stop: 09/07/20 09:59 Last Admin: 09/05/20 08:43 Dose: 100 mls/hr Documented by: Diltiazem HCl 100 mg/ Sodium (Chloride) 100 mls @ 5 mls/hr IV ASDIRECTED [facility] Last Infusion: 09/05/20 06:32 Dose: 0 mls/hr Documented by: Latanoprost (Latanoprost 0.005% Ophth Soln 2.5 Ml Bottle) 0 ml EYEBOTH BEDTIME [facility] Last Admin: 09/04/20 21:32 Dose: 1 drop Documented by: Melatonin (Melatonin 3 Mg Tab) 9 mg PO BEDTIME [facility] Last Admin: 09/04/20 21:26 Dose: 9 mg Documented by: Sodium Chloride (Sodium Chloride 0.9% 10 Ml Syringe) 10 ml FLUSH ASDIRECTED PRN PRN Reason: Keep Vein Open Last Admin: 09/01/20 23:10 Dose: 10 ml Documented by: Discontinued Medications Azithromycin (Azithromycin 250 Mg Tab) 500 mg PO ONETIME ONE Stop: 09/02/20 01:12 Last Admin: 09/02/20 01:44 Dose: 500 mg Documented by: Dexamethasone (Dexamethasone 4 Mg Tab) 6 mg PO ONETIME ONE Stop: 09/02/20 01:11 Last Admin: 09/02/20 01:44 Dose: 6 mg Documented by: Diltiazem HCl (Diltiazem 50 Mg/10 Ml Sdv) 10 mg IVPUSH ONETIME ONE Stop: 09/04/20 20:33 Last Admin: 09/04/20 21:09 Dose: 10 mg Documented by: Diltiazem HCl (Diltiazem Ir 30 Mg Tab) 30 mg PO Q6HR [facility] Last Admin: 09/04/20 21:26 Dose: 30 mg Documented by: Diltiazem HCl (Diltiazem Ir 30 Mg Tab) 30 mg PO Q6HR [facility] Last Admin: 09/05/20 06:40 Dose: 30 mg Documented by: Enoxaparin Sodium (Enoxaparin 40 Mg/0.4 Ml Syringe) 40 mg SUBCUT DAILY [facility] Last Admin: 09/02/20 11:36 Dose: Not Given Documented by: Enoxaparin Sodium (Enoxaparin 40 Mg/0.4 Ml Syringe) 40 mg SUBCUT BID [facility] Last Admin: 09/04/20 09:13 Dose: 40 mg Documented by: Lactated Ringer's (Ringers, Lactated) 1,000 mls @ 999 mls/hr IV .BOLUS ONE Stop: 09/01/20 23:25 Last Admin: 09/01/20 23:10 Dose: 999 mls/hr Documented by: Ceftriaxone Sodium 1 gm/ (Sodium Chloride) 100 mls @ 200 mls/hr IV ONETIME ONE Stop: 09/02/20 00:18 Last Admin: 09/02/20 18:17 Dose: Not Given Documented by: Sodium Chloride (Normal Saline) 1,000 mls @ 999 mls/hr IV ONETIME ONE Stop: 09/02/20 00:52 Last Admin: 09/02/20 00:21 Dose: 999 mls/hr Documented by: Ceftriaxone Sodium 1 gm/ (Sodium Chloride) 100 mls @ 200 mls/hr IV ONETIME ONE Stop: 09/02/20 00:41 Last Admin: 09/02/20 00:21 Dose: 200 mls/hr Documented by: Sodium Chloride (Normal Saline) 1,000 mls @ 150 mls/hr IV ASDIRECTED [facility] Sodium Chloride (Normal Saline) 1,000 mls @ 150 mls/hr IV ASDIRECTED [facility] Last Admin: 09/02/20 02:41 Dose: 150 mls/hr Documented by: Remdesivir 200 mg/ Sodium (Chloride) 250 mls @ 250 mls/hr IV ONETIME ONE Stop: 09/03/20 11:29 Last Admin: 09/03/20 10:31 Dose: 250 mls/hr Documented by: Magnesium Sulfate (Magnesium Sulfate In Water 2 Gm/50 Ml) 2 gm in 50 mls @ 25 mls/hr IV ONETIME ONE Stop: 09/04/20 12:29 Last Admin: 09/04/20 10:50 Dose: 25 mls/hr Documented by: Sodium Chloride (Normal Saline) 100 mls @ 75 mls/hr IV ASDIRECTED [facility] Stop: 09/04/20 13:00 Last Admin: 09/04/20 10:32 Dose: 75 mls/hr Documented by: Iopamidol (Iopamidol 755 Mg/Ml 100 Ml Bottle) 100 ml IVPUSH ONETIME ONE Stop: 09/04/20 09:46 Last Admin: 09/04/20 10:32 Dose: 100 ml Documented by: Potassium Chloride (Potassium Chloride 20 Meq Tab.Er) 40 meq PO ONETIME ONE Stop: 09/02/20 04:53 Last Admin: 09/02/20 05:05 Dose: 40 meq Documented by: Potassium Chloride (Potassium Chloride 20 Meq Tab.Er) 40 meq PO Q4H [facility] Stop: 09/03/20 14:01 Last Admin: 09/03/20 14:36 Dose: 40 meq Documented by: Sodium Chloride (Sodium Chloride 0.9% 10 Ml Syringe) 10 ml FLUSH ONETIME PRN PRN Reason: IV FLUSH Stop: 09/04/20 18:00 - Exam Quality Assessment: No: Supplemental Oxygen General: Alert, Oriented, Cooperative HEENT: Pupils Equal, Mucous Membr. Moist/[place] Neck: Supple Lungs: Normal Respiratory Effort, Decreased Breath Sounds (BL lung bases ). No: Crackles, Stridor, Wheezing Cardiovascular: Irregular Rhythm, Tachycardia (Afib ) GI/Abdominal Exam: Normal Bowel Sounds, Soft, Non-Tender, No Distention. No: Guarding, Rigid, Rebound Extremities: Normal Inspection, No Pedal Edema Peripheral Pulses: 2+: Radial (L), Radial (R) Skin: Warm, Dry, Intact Neurological: No New Focal Deficit Psy/Mental Status: Alert, Normal Affect - Patient Data Lab Results Last 24 hrs: Laboratory Results - last 24 hr 09/05/20 09/05/20 Range/Units 05:55 05:55 D-Dimer, Quantitative 2.08 H (0.19-0.50) mg/L Sodium 139 (136-145) mEq/L Potassium 3.5 (3.5-5.1) mEq/L Chloride 100 (98-107) mEq/L Carbon Dioxide 30 (21-32) mEq/L Anion Gap 12.5 (5-15) BUN 17 (7-18) mg/dL Creatinine 0.8 (0.55-1.02) mg/dL Est Cr Clr Drug Dosing 53.83 mL/min Estimated GFR (MDRD) > 60 (>60) mL/min BUN/Creatinine Ratio 21.3 H (14-18) Glucose 143 H (83-115) mg/dL Calcium 7.6 L (8.5-10.1) mg/dL Magnesium 1.9 (1.8-2.4) mg/dl Total Bilirubin 0.7 (0.2-1.0) mg/dL AST 58 H (15-37) U/L ALT 60 H (14-59) U/L Alkaline Phosphatase 64 (46-116) U/L C-Reactive Protein 11.7 H* (<1.0) mg/dL Total Protein 6.3 L (6.4-8.2) g/dl Albumin 2.2 L (3.4-5.0) g/dl Globulin 4.1 gm/dL Albumin/Globulin Ratio 0.5 L (1-2) Result Diagrams: 09/04/20 06:06 09/05/20 05:55 Chavez Results Last 24 hrs: Microbiology 09/01/20 23:00 Aerobic Blood Culture - Preliminary Blood - Venous - Lab Draw NO GROWTH AFTER 3 DAYS Anaerobic Blood Culture - Preliminary NO GROWTH AFTER 3 DAYS 09/01/20 22:50 Aerobic Blood Culture - Preliminary Blood - Venous NO GROWTH AFTER 3 DAYS Anaerobic Blood Culture - Preliminary NO GROWTH AFTER 3 DAYS Sepsis Event Note - Evaluation Sepsis Screening Result: No Definite Risk - Focused Exam Vital Signs: Vital Signs Temp Pulse Resp BP Pulse Ox Pulse Ox 09/05/20 08:00 97.7 F 117 H 18 110/72 93 L 09/05/20 07:38 91 L 09/05/20 06:18 94 L 09/05/20 04:00 97.7 F 14 110/72 91 L 09/05/20 00:00 97.5 F 16 116/62 92 L - Problem List Review Problem List Initiated/Reviewed/Updated: Yes - My Orders Last 24 Hours: My Active Orders 09/04/20 11:14 Heat Therapy [OM.PC] Routine 09/04/20 19:57 EKG 12 Lead [EK] Stat 09/04/20 19:58 EKG Documentation Completion [RC] ASDIRECTED 09/04/20 21:00 Enoxaparin [Lovenox] 80 mg SUBCUT Q12H 09/04/20 22:04 Patient Status [ADT] Routine 09/04/20 22:15 Diltiazem [Cardizem] 100 mg Sodium Chloride 0.9% [Normal Saline] 100 ml IV ASDIRECTED 09/05/20 12:00 Diltiazem IR [Cardizem] 60 mg PO Q6HR - Assessment Assessment:: 09/02/20 A: COVID 19 -Refused testing on admission -Diagnosis predicated on chest x-ray/CTA showing bilateral pulmonary infiltrates, myalgias arthralgias night sweats, shortness of breath subjective fevers, chills and night sweats. -Progressed to acute hypoxic respiratory failure on 6L from RA on presentation, now back to RA -Has transaminitis at time of presentation -No hx of prior infection/vaccination -CTA shows no PE, but moderate/diffuse infiltrates BL consistent with COVID PNA. -Downtending D-dimer, inflammatory markers Acute Hypoxic Respiratory Failure -Secondary to COVID 19 -max support 6LNC, now on RA, baseline req RA Atrial Fibrillation with RVR -new onset, on 09/04 -s/p Diltazem gtt, started on PO dilt -On Lovenox 1mg/kg bid for covid/afib -No hx of Afib Hyponatremia -Resolved -Na 124 on admission, now 130 s/p NS infusion -Suspect patient had intravascular volume depletion consistent with hypovolemic hyponatremia secondary to decreased p.o. intake -May have contibuted to patient's weakness as well as ongoing COVID-19 Transaminitis -Elevated AST/ALT in setting of covid -Normal Tbili, Alk P04 Hypokalemia -Resolved -Mild 3.1 at time of admission Plan -Increase PO Cardizem to 60mg q6 hrs, if unresponsive may need to be placed back on gtt -Lovenox 1mg/kg BID -Titrate oxygen to maintain spo2 >90% -Rocephin/Azithromycin -Dexamethasone 6mg daily x 10 days -Continue Remdesivir -IS/Prone as tolerated -Regular diet -Expect DC in 24-48 hrs predicated on rate control and oxygen status, but overall Covid symptoms seem to be improving - Plan Plan:: A: * RT to oxygen to keep saturations greater than 90% * Continue incentive spirometry and Acapella * Dietitian consult regarding nutritional needs * PT/OT to eval and treat and increase activity * Prone positioning * Continue Rocephin, Zithromax and dexamethasone * Remdesivir day 3 * Supplement magnesium * Continue to trend labs including D-dimer, CRP, and liver functions * Continue current Lovenox dose as CTA did not show PE * fiscal services manager for discharge planning * Monitor blood sugars as patient is on dexamethasone 6 mg daily Primary Physician: none Code Status: Full Code GI: Pepcid DVT Prophylaxis: Lovenox Patient will likely be here 4 to 5 days due to treatment of Covid.
[2020-09-05] MEDS: Diltiazem IR 60 MG Tab PO SCH ×2 (11:03→17:11)
[2020-09-05] MEDS: cefTRIAXone 1 GM in Sodium Chloride 0.9% 100 ML IV SCH (20:06)
[2020-09-05] MEDS: Latanoprost 0.005% Ophth Soln 2.5 ML Bottle EYEBOTH SCH (20:11)
[2020-09-05] MEDS: Azithromycin 500 MG in Sodium Chloride 0.9% 250 ML IV SCH (20:40)
[2020-09-05] MEDS: Melatonin 3 MG Tab PO SCH (22:02)
[2020-09-06] MEDS: Diltiazem IR 60 MG Tab PO SCH ×5 (00:12→23:05)
[2020-09-06] MEDS: Dexamethasone 4 MG Tab PO SCH (08:05)
[2020-09-06] MEDS: Enoxaparin 80 MG/0.8 ML Syringe SUBCUT SCH ×2 (08:05→20:04)
[2020-09-06] MEDS: Famotidine 20 MG Tab PO SCH (08:05)
[2020-09-06] MEDS: REMDESIVIR 100 MG in Sodium Chloride 0.9% 100 ML IV SCH (08:06)
[2020-09-06] MEDS ORDERED: Metoprolol Tartrate 25 MG Tab PO SCH (09:00)
[2020-09-06] MEDS ORDERED: Levalbuterol HCl 0.63 MG/3 ML Neb NEB PRN (16:08)
[2020-09-06] MEDS ORDERED: Lactulose Soln 10 GM/15 ML 30 ML UD Cup PO PRN (16:13)
--- NOTE | 2020-09-06 16:19 | PCM.PN ---
- General Info Date of Service: 09/06/20 Admission Dx/Problem (Free Text): Admission Diagnosis/Problem Admission Diagnosis/Problem Altered mental status Subjective Update: Patient is a 87-year-old female presents to the emergency department after being transported from [facility] after experiencing 2 falls in the past 2 days. She was transferred to ICU due to atrial fibrillation with RVR. Patient does not have any new complaints. She is on room air to 1 L Heart rate less than 100 at rest - Review of Systems Systems Review Comment:: General: Reports: No Symptoms HEENT: Reports: No Symptoms Pulmonary: Reports: No Symptoms Cardiovascular: Reports: No Symptoms Gastrointestinal: Reports: No Symptoms Genitourinary: Reports: No Symptoms Musculoskeletal: Reports: No Symptoms Skin: Reports: No Symptoms Neurological: Reports: No Symptoms Psychiatric: Reports: No Symptoms - Patient Data Vitals - Most Recent: Last Vital Signs Temp 36.6 C 09/06/20 16:00 Pulse 111 H 09/06/20 09:25 Resp 17 09/06/20 16:00 BP 135/72 09/06/20 16:00 Pulse Ox 93 L 09/06/20 16:00 Weight - Most Recent: 80.876 kg I&O - Last 24 Hours: Intake & Output 09/06/20 09/06/20 09/06/20 06:59 14:59 22:59 Intake Total 400 100 Output Total 500 650 Balance -100 -550 Lab Results Last 24 Hours: Laboratory Results - last 24 hr 09/06/20 09/06/20 Range/Units 08:24 08:24 WBC 10.38 H (3.98-10.04) K/mm3 RBC 4.38 (3.98-5.22) M/mm3 Hgb 12.3 D (11.2-15.7) gm/dl Hct 37.0 (34.1-44.9) % MCV 84.5 (79.4-94.8) fl MCH 28.1 (25.6-32.2) pg MCHC 33.2 (32.2-35.5) g/dl RDW Std Deviation 41.9 (36.4-46.3) fL Plt Count 327 D (182-369) K/mm3 MPV 9.8 (9.4-12.3) fl Neut % (Auto) 73.6 H (34.0-71.1) % Lymph % (Auto) 16.2 L (19.3-51.7) % [place] % (Auto) 7.4 (4.7-12.5) % Eos % (Auto) 0 L (0.7-5.8) Baso % (Auto) 0.8 (0.1-1.2) % Neut # (Auto) 7.64 H (1.56-6.13) K/mm3 Lymph # (Auto) 1.68 (1.18-3.74) K/mm3 [place] # (Auto) 0.77 H (0.24-0.36) K/mm3 Eos # (Auto) 0.00 L (0.04-0.36) K/mm3 Baso # (Auto) 0.08 (0.01-0.08) K/mm3 Manual Slide Review Abnormal smear Sodium 137 (136-145) mEq/L Potassium 3.6 (3.5-5.1) mEq/L Chloride 100 (98-107) mEq/L Carbon Dioxide 29 (21-32) mEq/L Anion Gap 11.6 (5-15) BUN 19 H (7-18) mg/dL Creatinine 0.8 (0.55-1.02) mg/dL Est Cr Clr Drug Dosing 53.83 mL/min Estimated GFR (MDRD) > 60 (>60) mL/min BUN/Creatinine Ratio 23.8 H (14-18) Glucose 181 H (83-115) mg/dL Calcium 8.3 L (8.5-10.1) mg/dL Total Bilirubin 0.9 (0.2-1.0) mg/dL AST 64 H (15-37) U/L ALT 69 H (14-59) U/L Alkaline Phosphatase 76 (46-116) U/L Total Protein 6.9 (6.4-8.2) g/dl Albumin 2.4 L (3.4-5.0) g/dl Globulin 4.5 gm/dL Albumin/Globulin Ratio 0.5 L (1-2) Chavez Results Last 24 Hours: Microbiology 09/01/20 23:00 Aerobic Blood Culture - Preliminary Blood - Venous - Lab Draw NO GROWTH AFTER 4 DAYS Anaerobic Blood Culture - Preliminary NO GROWTH AFTER 4 DAYS 09/01/20 22:50 Aerobic Blood Culture - Preliminary Blood - Venous NO GROWTH AFTER 4 DAYS Anaerobic Blood Culture - Preliminary NO GROWTH AFTER 4 DAYS Med Orders - Current: Current Medications Acetaminophen (Acetaminophen 325 Mg Tab) 650 mg PO Q4H PRN PRN Reason: Fever Last Admin: 09/04/20 11:22 Dose: 650 mg Documented by: Dexamethasone (Dexamethasone 4 Mg Tab) 6 mg PO DAILY [facility] Last Admin: 09/06/20 08:05 Dose: 6 mg Documented by: Diltiazem HCl (Diltiazem Ir 60 Mg Tab) 60 mg PO Q6HR [facility] Last Admin: 09/06/20 10:59 Dose: 60 mg Documented by: Enoxaparin Sodium (Enoxaparin 80 Mg/0.8 Ml Syringe) 80 mg SUBCUT Q12H [facility] Last Admin: 09/06/20 08:05 Dose: 80 mg Documented by: Famotidine (Famotidine 20 Mg Tab) 20 mg PO DAILY [facility] Last Admin: 09/06/20 08:05 Dose: 20 mg Documented by: Ceftriaxone Sodium 1 gm/ (Sodium Chloride) 100 mls @ 200 mls/hr IV Q24H [facility] Last Admin: 09/05/20 20:06 Dose: 200 mls/hr Documented by: Azithromycin 500 mg/ Sodium (Chloride) 250 mls @ 250 mls/hr IV Q24H [facility] Last Admin: 09/05/20 20:40 Dose: 250 mls/hr Documented by: Remdesivir 100 mg/ Sodium (Chloride) 100 mls @ 100 mls/hr IV DAILY [facility] Stop: 09/07/20 09:59 Last Admin: 09/06/20 08:06 Dose: 100 mls/hr Documented by: Diltiazem HCl 100 mg/ Sodium (Chloride) 100 mls @ 5 mls/hr IV ASDIRECTED [facility] Last Infusion: 09/05/20 06:32 Dose: 0 mls/hr Documented by: Latanoprost (Latanoprost 0.005% Ophth Soln 2.5 Ml Bottle) 0 ml EYEBOTH BEDTIME [facility] Last Admin: 09/05/20 20:11 Dose: 1 drop Documented by: Levalbuterol HCl (Levalbuterol Hcl 0.63 Mg/3 Ml Neb) 0.63 mg NEB Q4HRRT PRN PRN Reason: Shortness of Breath Melatonin (Melatonin 3 Mg Tab) 9 mg PO BEDTIME [facility] Last Admin: 09/05/20 22:02 Dose: 9 mg Documented by: Metoprolol Tartrate (Metoprolol Tartrate 25 Mg Tab) 25 mg PO Q12H [facility] Sodium Chloride (Sodium Chloride 0.9% 10 Ml Syringe) 10 ml FLUSH ASDIRECTED PRN PRN Reason: Keep Vein Open Last Admin: 09/01/20 23:10 Dose: 10 ml Documented by: Discontinued Medications Albuterol (Albuterol 6.7 Gm Inhaler) 0 gm INH Q2H PRN PRN Reason: shortness of breath Azithromycin (Azithromycin 250 Mg Tab) 500 mg PO ONETIME ONE Stop: 09/02/20 01:12 Last Admin: 09/02/20 01:44 Dose: 500 mg Documented by: Dexamethasone (Dexamethasone 4 Mg Tab) 6 mg PO ONETIME ONE Stop: 09/02/20 01:11 Last Admin: 09/02/20 01:44 Dose: 6 mg Documented by: Diltiazem HCl (Diltiazem 50 Mg/10 Ml Sdv) 10 mg IVPUSH ONETIME ONE Stop: 09/04/20 20:33 Last Admin: 09/04/20 21:09 Dose: 10 mg Documented by: Diltiazem HCl (Diltiazem Ir 30 Mg Tab) 30 mg PO Q6HR [facility] Last Admin: 09/04/20 21:26 Dose: 30 mg Documented by: Diltiazem HCl (Diltiazem Ir 30 Mg Tab) 30 mg PO Q6HR [facility] Last Admin: 09/05/20 06:40 Dose: 30 mg Documented by: Enoxaparin Sodium (Enoxaparin 40 Mg/0.4 Ml Syringe) 40 mg SUBCUT DAILY [facility] Last Admin: 09/02/20 11:36 Dose: Not Given Documented by: Enoxaparin Sodium (Enoxaparin 40 Mg/0.4 Ml Syringe) 40 mg SUBCUT BID [facility] Last Admin: 09/04/20 09:13 Dose: 40 mg Documented by: Lactated Ringer's (Ringers, Lactated) 1,000 mls @ 999 mls/hr IV .BOLUS ONE Stop: 09/01/20 23:25 Last Admin: 09/01/20 23:10 Dose: 999 mls/hr Documented by: Ceftriaxone Sodium 1 gm/ (Sodium Chloride) 100 mls @ 200 mls/hr IV ONETIME ONE Stop: 09/02/20 00:18 Last Admin: 09/02/20 18:17 Dose: Not Given Documented by: Sodium Chloride (Normal Saline) 1,000 mls @ 999 mls/hr IV ONETIME ONE Stop: 09/02/20 00:52 Last Admin: 09/02/20 00:21 Dose: 999 mls/hr Documented by: Ceftriaxone Sodium 1 gm/ (Sodium Chloride) 100 mls @ 200 mls/hr IV ONETIME ONE Stop: 09/02/20 00:41 Last Admin: 09/02/20 00:21 Dose: 200 mls/hr Documented by: Sodium Chloride (Normal Saline) 1,000 mls @ 150 mls/hr IV ASDIRECTED [facility] Sodium Chloride (Normal Saline) 1,000 mls @ 150 mls/hr IV ASDIRECTED [facility] Last Admin: 09/02/20 02:41 Dose: 150 mls/hr Documented by: Remdesivir 200 mg/ Sodium (Chloride) 250 mls @ 250 mls/hr IV ONETIME ONE Stop: 09/03/20 11:29 Last Admin: 09/03/20 10:31 Dose: 250 mls/hr Documented by: Magnesium Sulfate (Magnesium Sulfate In Water 2 Gm/50 Ml) 2 gm in 50 mls @ 25 mls/hr IV ONETIME ONE Stop: 09/04/20 12:29 Last Admin: 09/04/20 10:50 Dose: 25 mls/hr Documented by: Sodium Chloride (Normal Saline) 100 mls @ 75 mls/hr IV ASDIRECTED [facility] Stop: 09/04/20 13:00 Last Admin: 09/04/20 10:32 Dose: 75 mls/hr Documented by: Iopamidol (Iopamidol 755 Mg/Ml 100 Ml Bottle) 100 ml IVPUSH ONETIME ONE Stop: 09/04/20 09:46 Last Admin: 09/04/20 10:32 Dose: 100 ml Documented by: Metoprolol Tartrate (Metoprolol Tartrate 25 Mg Tab) 12.5 mg PO Q12H [facility] Last Admin: 09/06/20 09:25 Dose: 12.5 mg Documented by: Potassium Chloride (Potassium Chloride 20 Meq Tab.Er) 40 meq PO ONETIME ONE Stop: 09/02/20 04:53 Last Admin: 09/02/20 05:05 Dose: 40 meq Documented by: Potassium Chloride (Potassium Chloride 20 Meq Tab.Er) 40 meq PO Q4H [facility] Stop: 09/03/20 14:01 Last Admin: 09/03/20 14:36 Dose: 40 meq Documented by: Sodium Chloride (Sodium Chloride 0.9% 10 Ml Syringe) 10 ml FLUSH ONETIME PRN PRN Reason: IV FLUSH Stop: 09/04/20 18:00 - Exam Physical Findings Comments:: General: Alert, Oriented, Cooperative HEENT: Pupils Equal, Mucous Membr. Moist/[place] Neck: Supple Lungs: Normal Respiratory Effort, Decreased Breath Sounds (BL lung bases ). No: Crackles, Stridor, Wheezing Cardiovascular: Irregular Rhythm, Tachycardia (Afib ) GI/Abdominal Exam: Normal Bowel Sounds, Soft, Non-Tender, No Distention. No: Guarding, Rigid, Rebound Extremities: Normal Inspection, No Pedal Edema Peripheral Pulses: 2+: Radial (L), Radial (R) Skin: Warm, Dry, Intact Neurological: No New Focal Deficit Psy/Mental Status: Alert, Normal Affect - Patient Data Lab Results Last 24 hrs: Laboratory Results - last 24 hr 09/06/20 09/06/20 Range/Units 08:24 08:24 WBC 10.38 H (3.98-10.04) K/mm3 RBC 4.38 (3.98-5.22) M/mm3 Hgb 12.3 D (11.2-15.7) gm/dl Hct 37.0 (34.1-44.9) % MCV 84.5 (79.4-94.8) fl MCH 28.1 (25.6-32.2) pg MCHC 33.2 (32.2-35.5) g/dl RDW Std Deviation 41.9 (36.4-46.3) fL Plt Count 327 D (182-369) K/mm3 MPV 9.8 (9.4-12.3) fl Neut % (Auto) 73.6 H (34.0-71.1) % Lymph % (Auto) 16.2 L (19.3-51.7) % [place] % (Auto) 7.4 (4.7-12.5) % Eos % (Auto) 0 L (0.7-5.8) Baso % (Auto) 0.8 (0.1-1.2) % Neut # (Auto) 7.64 H (1.56-6.13) K/mm3 Lymph # (Auto) 1.68 (1.18-3.74) K/mm3 [place] # (Auto) 0.77 H (0.24-0.36) K/mm3 Eos # (Auto) 0.00 L (0.04-0.36) K/mm3 Baso # (Auto) 0.08 (0.01-0.08) K/mm3 Manual Slide Review Abnormal smear Sodium 137 (136-145) mEq/L Potassium 3.6 (3.5-5.1) mEq/L Chloride 100 (98-107) mEq/L Carbon Dioxide 29 (21-32) mEq/L Anion Gap 11.6 (5-15) BUN 19 H (7-18) mg/dL Creatinine 0.8 (0.55-1.02) mg/dL Est Cr Clr Drug Dosing 53.83 mL/min Estimated GFR (MDRD) > 60 (>60) mL/min BUN/Creatinine Ratio 23.8 H (14-18) Glucose 181 H (83-115) mg/dL Calcium 8.3 L (8.5-10.1) mg/dL Total Bilirubin 0.9 (0.2-1.0) mg/dL AST 64 H (15-37) U/L ALT 69 H (14-59) U/L Alkaline Phosphatase 76 (46-116) U/L Total Protein 6.9 (6.4-8.2) g/dl Albumin 2.4 L (3.4-5.0) g/dl Globulin 4.5 gm/dL Albumin/Globulin Ratio 0.5 L (1-2) Result Diagrams: 09/06/20 08:24 09/06/20 08:24 Chavez Results Last 24 hrs: Microbiology 09/01/20 23:00 Aerobic Blood Culture - Preliminary Blood - Venous - Lab Draw NO GROWTH AFTER 4 DAYS Anaerobic Blood Culture - Preliminary NO GROWTH AFTER 4 DAYS 09/01/20 22:50 Aerobic Blood Culture - Preliminary Blood - Venous NO GROWTH AFTER 4 DAYS Anaerobic Blood Culture - Preliminary NO GROWTH AFTER 4 DAYS Sepsis Event Note - Evaluation Sepsis Screening Result: No Definite Risk - Focused Exam Vital Signs: Vital Signs Temp Pulse Resp BP BP Pulse Ox Pulse Ox 09/06/20 16:00 36.6 C 17 135/72 93 L 09/06/20 14:46 91 L 09/06/20 12:00 36.7 C 17 129/70 92 L 09/06/20 09:25 111 H 136/69 09/06/20 08:00 36.6 C 18 135/78 90 L 09/06/20 07:44 09/06/20 06:43 90 L 09/06/20 06:00 92 L 09/06/20 05:00 91 L Pulse Ox 09/06/20 16:00 09/06/20 14:46 09/06/20 12:00 09/06/20 09:25 09/06/20 08:00 09/06/20 07:44 90 L 09/06/20 06:43 09/06/20 06:00 09/06/20 05:00 - Problem List Review Problem List Initiated/Reviewed/Updated: Yes - My Orders Last 24 Hours: My Active Orders 09/06/20 16:08 levalbuterol HCL [Xopenex] 0.63 mg NEB Q4HRRT PRN 09/06/20 16:09 RT Aerosol Therapy [RC] ASDIRECTED 09/06/20 16:13 Lactulose [Cephulac] 20 gm PO DAILY PRN 09/06/20 16:14 Docusate Sodium [Colace] 100 mg PO BID PRN 09/06/20 21:00 Metoprolol Tartrate [Lopressor] 25 mg PO Q12H 09/07/20 05:00 CBC WITH AUTO DIFF [HEME] DAILY COMPREHENSIVE METABOLIC PN,CMP [CHEM] DAILY CRP [C-REACTIVE PROTEIN] [CHEM] DAILY 09/08/20 05:00 CBC WITH AUTO DIFF [HEME] DAILY COMPREHENSIVE METABOLIC PN,CMP [CHEM] DAILY CRP [C-REACTIVE PROTEIN] [CHEM] DAILY 09/09/20 05:00 CBC WITH AUTO DIFF [HEME] DAILY COMPREHENSIVE METABOLIC PN,CMP [CHEM] DAILY CRP [C-REACTIVE PROTEIN] [CHEM] DAILY 09/10/20 05:00 CBC WITH AUTO DIFF [HEME] DAILY COMPREHENSIVE METABOLIC PN,CMP [CHEM] DAILY CRP [C-REACTIVE PROTEIN] [CHEM] DAILY 09/11/20 05:00 CBC WITH AUTO DIFF [HEME] DAILY COMPREHENSIVE METABOLIC PN,CMP [CHEM] DAILY CRP [C-REACTIVE PROTEIN] [CHEM] DAILY - Assessment Assessment:: Patient is a 87-year-old female presents to the emergency department after being transported from [facility] after experiencing 2 falls in the past 2 days. She was transferred to ICU due to atrial fibrillation with RVR. Assessment: COVID 19 pneumonia -Refused testing on admission -Diagnosis predicated on chest x-ray/CTA showing bilateral pulmonary in filtrates, myalgias arthralgias night sweats, shortness of breath subjective fevers, chills and night sweats. -Progressed to acute hypoxic respiratory failure -Has transaminitis at time of presentation -No hx of prior infection/vaccination -CTA shows no PE, but moderate/diffuse infiltrates BL consistent with COVID PNA. -Elevation of D-dimer and CRP Acute Hypoxic Respiratory Failure -Secondary to COVID 19 -max support 6LNC, now on RA to1L, baseline req RA Atrial Fibrillation with RVR -new onset, on 09/04/2020 -s/p Diltazem gtt, started on PO dilt -added metoprolol 25mg bid -On Lovenox 1mg/kg bid for covid/afib -No hx of Afib Hyponatremia -Resolved -Na 124 on admission -Suspect patient had intravascular volume depletion consistent with hypovolemic hyponatremia secondary to decreased p.o. intake -May have contributed to only 1 to patient's weakness as well as ongoing COVID- 19 Transaminitis -Elevated AST/ALT in setting of covid -Normal Tbili, Alk P04 Hypokalemia -Resolved rate Plan -PO Cardizem to 60mg q6 hrs and metoprolol 25mg bid. If unresponsive may need to be placed back on gtt 1 mg -Lovenox 1mg/kg BID -Titrate oxygen to maintain spo2 >90% -Rocephin/Azithromycin -Dexamethasone 6mg daily x 10 days -Continue Remdesivir -Therapeutic Lovenox -IS/Prone as tolerated -Regular diet Deposition: length of stay greater then 96 hours due to slow response to treatment.
[2020-09-06] MEDS: Docusate Sodium 100 MG Cap PO PRN (20:02)
[2020-09-06] MEDS: Metoprolol Tartrate 25 MG Tab PO SCH (20:03)
[2020-09-06] MEDS: Latanoprost 0.005% Ophth Soln 2.5 ML Bottle EYEBOTH SCH (20:06)
[2020-09-06] MEDS: cefTRIAXone 1 GM in Sodium Chloride 0.9% 100 ML IV SCH (20:07)
[2020-09-06] MEDS: Azithromycin 500 MG in Sodium Chloride 0.9% 250 ML IV SCH (20:48)
[2020-09-06] MEDS: Melatonin 3 MG Tab PO SCH (21:53)
[2020-09-07] MEDS: Diltiazem IR 60 MG Tab PO SCH ×3 (06:50→17:40)
[2020-09-07] MEDS: Enoxaparin 80 MG/0.8 ML Syringe SUBCUT SCH ×2 (09:07→20:32)
[2020-09-07] MEDS: Dexamethasone 4 MG Tab PO SCH (09:07)
[2020-09-07] MEDS: Docusate Sodium 100 MG Cap PO PRN ×2 (09:08→20:21)
[2020-09-07] MEDS: Famotidine 20 MG Tab PO SCH (09:08)
[2020-09-07] MEDS: Metoprolol Tartrate 25 MG Tab PO SCH ×2 (09:10→20:21)
[2020-09-07] MEDS: REMDESIVIR 100 MG in Sodium Chloride 0.9% 100 ML IV SCH (09:13)
--- NOTE | 2020-09-07 11:03 | PCM.PN ---
- General Info Date of Service: 09/07/20 Admission Dx/Problem (Free Text): Admission Diagnosis/Problem Admission Diagnosis/Problem Altered mental status Subjective Update: Patient is a 75-year-old female who was brought in by her family due to concerns over ongoing weakness and unsteadiness on her feet. Patient reports over the past several days she has had subjective fevers, chills, night sweats, myalgias arthralgias as well as shortness of breath. She was admitted to hospital for possible covid 19 pneumonia. She was transferred to ICU on 09/04 due to atrial fi brillation with RVR. Patient does not have any new complaints. Denies dizziness, chest pain, or p alpitation. She is on room air to room air to 1 L. Heart rate is controlled, <100. Blood pressure is a stable and acceptable. Diltiazem drip was off 2 days ago. She will be downgraded to telemetry today. - Review of Systems Systems Review Comment:: General: Reports: No Symptoms HEENT: Reports: No Symptoms Pulmonary: Reports: No Symptoms Cardiovascular: Reports: No Symptoms Gastrointestinal: Reports: No Symptoms Genitourinary: Reports: No Symptoms Musculoskeletal: Reports: No Symptoms Skin: Reports: No Symptoms Neurological: Reports: No Symptoms Psychiatric: Reports: No Symptoms - Patient Data Vitals - Most Recent: Last Vital Signs Temp 36.4 C 09/07/20 08:00 Pulse 97 09/07/20 09:10 Resp 18 09/07/20 08:00 BP 135/67 09/07/20 09:10 Pulse Ox 92 L 09/07/20 08:00 Weight - Most Recent: 81.964 kg I&O - Last 24 Hours: Intake & Output 09/06/20 09/07/20 09/07/20 22:59 06:59 14:59 Intake Total 450 400 180 Output Total 1150 Balance -700 400 180 Lab Results Last 24 Hours: Laboratory Results - last 24 hr 09/07/20 09/07/20 Range/Units 04:51 04:51 WBC 9.85 (3.98-10.04) K/mm3 RBC 3.81 L (3.98-5.22) M/mm3 Hgb 11.4 (11.2-15.7) gm/dl Hct 33.7 L (34.1-44.9) % MCV 88.5 D (79.4-94.8) fl MCH 29.9 (25.6-32.2) pg MCHC 33.8 (32.2-35.5) g/dl RDW Std Deviation 43.0 (36.4-46.3) fL Plt Count 305 (182-369) K/mm3 MPV 10.3 (9.4-12.3) fl Neut % (Auto) 75.4 H (34.0-71.1) % Lymph % (Auto) 14.7 L (19.3-51.7) % [place] % (Auto) 8.4 (4.7-12.5) % Eos % (Auto) 0 L (0.7-5.8) Baso % (Auto) 0.2 (0.1-1.2) % Neut # (Auto) 7.42 H (1.56-6.13) K/mm3 Lymph # (Auto) 1.45 (1.18-3.74) K/mm3 [place] # (Auto) 0.83 H (0.24-0.36) K/mm3 Eos # (Auto) 0.00 L (0.04-0.36) K/mm3 Baso # (Auto) 0.02 (0.01-0.08) K/mm3 Manual Slide Review Abnormal smear Sodium 137 (136-145) mEq/L Potassium 3.7 (3.5-5.1) mEq/L Chloride 99 (98-107) mEq/L Carbon Dioxide 28 (21-32) mEq/L Anion Gap 13.7 (5-15) BUN 22 H (7-18) mg/dL Creatinine 0.9 (0.55-1.02) mg/dL Est Cr Clr Drug Dosing 47.85 mL/min Estimated GFR (MDRD) > 60 (>60) mL/min BUN/Creatinine Ratio 24.4 H (14-18) Glucose 228 H (83-115) mg/dL Calcium 8.0 L (8.5-10.1) mg/dL Total Bilirubin 0.6 (0.2-1.0) mg/dL AST 115 H (15-37) U/L ALT 119 H (14-59) U/L Alkaline Phosphatase 99 (46-116) U/L C-Reactive Protein 11.8 H* (<1.0) mg/dL Total Protein 7.0 (6.4-8.2) g/dl Albumin 2.5 L (3.4-5.0) g/dl Globulin 4.5 gm/dL Albumin/Globulin Ratio 0.6 L (1-2) Chavez Results Last 24 Hours: Microbiology 09/01/20 23:00 Aerobic Blood Culture - Preliminary Blood - Venous - Lab Draw NO GROWTH AFTER 5 DAYS Anaerobic Blood Culture - Preliminary NO GROWTH AFTER 5 DAYS 09/01/20 22:50 Aerobic Blood Culture - Preliminary Blood - Venous NO GROWTH AFTER 5 DAYS Anaerobic Blood Culture - Preliminary NO GROWTH AFTER 5 DAYS Med Orders - Current: Current Medications Acetaminophen (Acetaminophen 325 Mg Tab) 650 mg PO Q4H PRN PRN Reason: Fever Last Admin: 09/04/20 11:22 Dose: 650 mg Documented by: Dexamethasone (Dexamethasone 4 Mg Tab) 6 mg PO DAILY [facility] Last Admin: 09/07/20 09:07 Dose: 6 mg Documented by: Diltiazem HCl (Diltiazem Ir 60 Mg Tab) 60 mg PO Q6HR [facility] Last Admin: 09/07/20 06:50 Dose: 60 mg Documented by: Docusate Sodium (Docusate Sodium 100 Mg Cap) 100 mg PO BID PRN PRN Reason: Constipation Last Admin: 09/07/20 09:08 Dose: 100 mg Documented by: Enoxaparin Sodium (Enoxaparin 80 Mg/0.8 Ml Syringe) 80 mg SUBCUT Q12H [facility] Last Admin: 09/07/20 09:07 Dose: 80 mg Documented by: Famotidine (Famotidine 20 Mg Tab) 20 mg PO DAILY [facility] Last Admin: 09/07/20 09:08 Dose: 20 mg Documented by: Ceftriaxone Sodium 1 gm/ (Sodium Chloride) 100 mls @ 200 mls/hr IV Q24H [facility] Last Admin: 09/06/20 20:07 Dose: 200 mls/hr Documented by: Azithromycin 500 mg/ Sodium (Chloride) 250 mls @ 250 mls/hr IV Q24H [facility] Last Admin: 09/06/20 20:48 Dose: 250 mls/hr Documented by: Diltiazem HCl 100 mg/ Sodium (Chloride) 100 mls @ 5 mls/hr IV ASDIRECTED [facility] Last Infusion: 09/05/20 06:32 Dose: 0 mls/hr Documented by: Lactulose (Lactulose Soln 10 Gm/15 Ml 30 Ml Ud Cup) 20 gm PO DAILY PRN PRN Reason: Constipation Latanoprost (Latanoprost 0.005% Ophth Soln 2.5 Ml Bottle) 0 ml EYEBOTH BEDTIME [facility] Last Admin: 09/06/20 20:06 Dose: 1 drop Documented by: Levalbuterol HCl (Levalbuterol Hcl 0.63 Mg/3 Ml Neb) 0.63 mg NEB Q4HRRT PRN PRN Reason: Shortness of Breath Last Admin: 09/07/20 04:53 Dose: 0.63 mg Documented by: Melatonin (Melatonin 3 Mg Tab) 9 mg PO BEDTIME [facility] Last Admin: 09/06/20 21:53 Dose: 9 mg Documented by: Metoprolol Tartrate (Metoprolol Tartrate 25 Mg Tab) 25 mg PO Q12H [facility] Last Admin: 09/07/20 09:10 Dose: 25 mg Documented by: Sodium Chloride (Sodium Chloride 0.9% 10 Ml Syringe) 10 ml FLUSH ASDIRECTED PRN PRN Reason: Keep Vein Open Last Admin: 09/01/20 23:10 Dose: 10 ml Documented by: Discontinued Medications Albuterol (Albuterol 6.7 Gm Inhaler) 0 gm INH Q2H PRN PRN Reason: shortness of breath Azithromycin (Azithromycin 250 Mg Tab) 500 mg PO ONETIME ONE Stop: 09/02/20 01:12 Last Admin: 09/02/20 01:44 Dose: 500 mg Documented by: Dexamethasone (Dexamethasone 4 Mg Tab) 6 mg PO ONETIME ONE Stop: 09/02/20 01:11 Last Admin: 09/02/20 01:44 Dose: 6 mg Documented by: Diltiazem HCl (Diltiazem 50 Mg/10 Ml Sdv) 10 mg IVPUSH ONETIME ONE Stop: 09/04/20 20:33 Last Admin: 09/04/20 21:09 Dose: 10 mg Documented by: Diltiazem HCl (Diltiazem Ir 30 Mg Tab) 30 mg PO Q6HR [facility] Last Admin: 09/04/20 21:26 Dose: 30 mg Documented by: Diltiazem HCl (Diltiazem Ir 30 Mg Tab) 30 mg PO Q6HR [facility] Last Admin: 09/05/20 06:40 Dose: 30 mg Documented by: Enoxaparin Sodium (Enoxaparin 40 Mg/0.4 Ml Syringe) 40 mg SUBCUT DAILY [facility] Last Admin: 09/02/20 11:36 Dose: Not Given Documented by: Enoxaparin Sodium (Enoxaparin 40 Mg/0.4 Ml Syringe) 40 mg SUBCUT BID [facility] Last Admin: 09/04/20 09:13 Dose: 40 mg Documented by: Lactated Ringer's (Ringers, Lactated) 1,000 mls @ 999 mls/hr IV .BOLUS ONE Stop: 09/01/20 23:25 Last Admin: 09/01/20 23:10 Dose: 999 mls/hr Documented by: Ceftriaxone Sodium 1 gm/ (Sodium Chloride) 100 mls @ 200 mls/hr IV ONETIME ONE Stop: 09/02/20 00:18 Last Admin: 09/02/20 18:17 Dose: Not Given Documented by: Sodium Chloride (Normal Saline) 1,000 mls @ 999 mls/hr IV ONETIME ONE Stop: 09/02/20 00:52 Last Admin: 09/02/20 00:21 Dose: 999 mls/hr Documented by: Ceftriaxone Sodium 1 gm/ (Sodium Chloride) 100 mls @ 200 mls/hr IV ONETIME ONE Stop: 09/02/20 00:41 Last Admin: 09/02/20 00:21 Dose: 200 mls/hr Documented by: Sodium Chloride (Normal Saline) 1,000 mls @ 150 mls/hr IV ASDIRECTED [facility] Sodium Chloride (Normal Saline) 1,000 mls @ 150 mls/hr IV ASDIRECTED [facility] Last Admin: 09/02/20 02:41 Dose: 150 mls/hr Documented by: Remdesivir 200 mg/ Sodium (Chloride) 250 mls @ 250 mls/hr IV ONETIME ONE Stop: 09/03/20 11:29 Last Admin: 09/03/20 10:31 Dose: 250 mls/hr Documented by: Remdesivir 100 mg/ Sodium (Chloride) 100 mls @ 100 mls/hr IV DAILY [facility] Stop: 09/07/20 09:59 Last Admin: 09/07/20 09:13 Dose: 100 mls/hr Documented by: Magnesium Sulfate (Magnesium Sulfate In Water 2 Gm/50 Ml) 2 gm in 50 mls @ 25 mls/hr IV ONETIME ONE Stop: 09/04/20 12:29 Last Admin: 09/04/20 10:50 Dose: 25 mls/hr Documented by: Sodium Chloride (Normal Saline) 100 mls @ 75 mls/hr IV ASDIRECTED [facility] Stop: 09/04/20 13:00 Last Admin: 09/04/20 10:32 Dose: 75 mls/hr Documented by: Iopamidol (Iopamidol 755 Mg/Ml 100 Ml Bottle) 100 ml IVPUSH ONETIME ONE Stop: 09/04/20 09:46 Last Admin: 09/04/20 10:32 Dose: 100 ml Documented by: Metoprolol Tartrate (Metoprolol Tartrate 25 Mg Tab) 12.5 mg PO Q12H [facility] Last Admin: 09/06/20 09:25 Dose: 12.5 mg Documented by: Potassium Chloride (Potassium Chloride 20 Meq Tab.Er) 40 meq PO ONETIME ONE Stop: 09/02/20 04:53 Last Admin: 09/02/20 05:05 Dose: 40 meq Documented by: Potassium Chloride (Potassium Chloride 20 Meq Tab.Er) 40 meq PO Q4H [facility] Stop: 09/03/20 14:01 Last Admin: 09/03/20 14:36 Dose: 40 meq Documented by: Sodium Chloride (Sodium Chloride 0.9% 10 Ml Syringe) 10 ml FLUSH ONETIME PRN PRN Reason: IV FLUSH Stop: 09/04/20 18:00 - Exam Physical Findings Comments:: General: Alert, Oriented, Cooperative HEENT: Pupils Equal, Mucous Membr. Moist/[place] Neck: Supple Lungs: Normal Respiratory Effort, Decreased Breath Sounds (BL lung bases ). No: Crackles, Stridor, Wheezing Cardiovascular: Irregular Rhythm, Tachycardia (Afib ) GI/Abdominal Exam: Normal Bowel Sounds, Soft, Non-Tender, No Distention. No: G uarding, Rigid, Rebound Extremities: Normal Inspection, No Pedal Edema Peripheral Pulses: 2+: Radial (L), Radial (R) Skin: Warm, Dry, Intact Neurological: No New Focal Deficit Psy/Mental Status: Alert, Normal Affect - Patient Data Lab Results Last 24 hrs: Laboratory Results - last 24 hr 09/07/20 09/07/20 Range/Units 04:51 04:51 WBC 9.85 (3.98-10.04) K/mm3 RBC 3.81 L (3.98-5.22) M/mm3 Hgb 11.4 (11.2-15.7) gm/dl Hct 33.7 L (34.1-44.9) % MCV 88.5 D (79.4-94.8) fl MCH 29.9 (25.6-32.2) pg MCHC 33.8 (32.2-35.5) g/dl RDW Std Deviation 43.0 (36.4-46.3) fL Plt Count 305 (182-369) K/mm3 MPV 10.3 (9.4-12.3) fl Neut % (Auto) 75.4 H (34.0-71.1) % Lymph % (Auto) 14.7 L (19.3-51.7) % [place] % (Auto) 8.4 (4.7-12.5) % Eos % (Auto) 0 L (0.7-5.8) Baso % (Auto) 0.2 (0.1-1.2) % Neut # (Auto) 7.42 H (1.56-6.13) K/mm3 Lymph # (Auto) 1.45 (1.18-3.74) K/mm3 [place] # (Auto) 0.83 H (0.24-0.36) K/mm3 Eos # (Auto) 0.00 L (0.04-0.36) K/mm3 Baso # (Auto) 0.02 (0.01-0.08) K/mm3 Manual Slide Review Abnormal smear Sodium 137 (136-145) mEq/L Potassium 3.7 (3.5-5.1) mEq/L Chloride 99 (98-107) mEq/L Carbon Dioxide 28 (21-32) mEq/L Anion Gap 13.7 (5-15) BUN 22 H (7-18) mg/dL Creatinine 0.9 (0.55-1.02) mg/dL Est Cr Clr Drug Dosing 47.85 mL/min Estimated GFR (MDRD) > 60 (>60) mL/min BUN/Creatinine Ratio 24.4 H (14-18) Glucose 228 H (83-115) mg/dL Calcium 8.0 L (8.5-10.1) mg/dL Total Bilirubin 0.6 (0.2-1.0) mg/dL AST 115 H (15-37) U/L ALT 119 H (14-59) U/L Alkaline Phosphatase 99 (46-116) U/L C-Reactive Protein 11.8 H* (<1.0) mg/dL Total Protein 7.0 (6.4-8.2) g/dl Albumin 2.5 L (3.4-5.0) g/dl Globulin 4.5 gm/dL Albumin/Globulin Ratio 0.6 L (1-2) Result Diagrams: 09/07/20 04:51 09/07/20 04:51 Chavez Results Last 24 hrs: Microbiology 09/01/20 23:00 Aerobic Blood Culture - Preliminary Blood - Venous - Lab Draw NO GROWTH AFTER 5 DAYS Anaerobic Blood Culture - Preliminary NO GROWTH AFTER 5 DAYS 09/01/20 22:50 Aerobic Blood Culture - Preliminary Blood - Venous NO GROWTH AFTER 5 DAYS Anaerobic Blood Culture - Preliminary NO GROWTH AFTER 5 DAYS Sepsis Event Note - Evaluation Sepsis Screening Result: No Definite Risk - Focused Exam Vital Signs: Vital Signs Temp Pulse Resp BP BP Pulse Ox Pulse Ox 09/07/20 09:10 97 135/67 09/07/20 08:00 36.4 C 18 135/67 92 L 09/07/20 07:57 92 L 09/07/20 05:34 95 09/07/20 04:56 92 L 09/07/20 04:25 36.4 C 20 128/68 92 L 09/07/20 03:00 93 L 09/06/20 23:09 36.4 C 16 100/56 L 92 L 09/06/20 23:05 93 L - Problem List Review Problem List Initiated/Reviewed/Updated: Yes - My Orders Last 24 Hours: My Active Orders 09/06/20 16:08 levalbuterol HCL [Xopenex] 0.63 mg NEB Q4HRRT PRN 09/06/20 16:09 RT Aerosol Therapy [RC] ASDIRECTED 09/06/20 16:13 Lactulose [Cephulac] 20 gm PO DAILY PRN 09/06/20 16:14 Docusate Sodium [Colace] 100 mg PO BID PRN 09/06/20 21:00 Metoprolol Tartrate [Lopressor] 25 mg PO Q12H 09/07/20 10:54 Patient Status [ADT] Routine 09/08/20 05:00 CBC WITH AUTO DIFF [HEME] DAILY COMPREHENSIVE METABOLIC PN,CMP [CHEM] DAILY CRP [C-REACTIVE PROTEIN] [CHEM] DAILY 09/09/20 05:00 CBC WITH AUTO DIFF [HEME] DAILY COMPREHENSIVE METABOLIC PN,CMP [CHEM] DAILY CRP [C-REACTIVE PROTEIN] [CHEM] DAILY 09/10/20 05:00 CBC WITH AUTO DIFF [HEME] DAILY COMPREHENSIVE METABOLIC PN,CMP [CHEM] DAILY CRP [C-REACTIVE PROTEIN] [CHEM] DAILY 09/11/20 05:00 CBC WITH AUTO DIFF [HEME] DAILY COMPREHENSIVE METABOLIC PN,CMP [CHEM] DAILY CRP [C-REACTIVE PROTEIN] [CHEM] DAILY - Assessment Assessment:: Patient is a 75-year-old female who was brought in by her family due to concerns over ongoing weakness and unsteadiness on her feet. Patient reports over the past several days she has had subjective fevers, chills, night sweats, myalgias arthralgias as well as shortness of breath. She was admitted to hospital for possible covid 19 pneumonia. She was transferred to ICU on 09/04 due to atrial fibrillation with RVR. Assessment: COVID 19 pneumonia -Refused testing on admission -Diagnosis predicated on chest x-ray/CTA showing bilateral pulmonary infiltrates, myalgias arthralgias night sweats, shortness of breath subjective fevers, chills and night sweats. -Progressed to acute hypoxic respiratory failure -Has transaminitis at time of presentation -No hx of prior infection/vaccination -CTA shows no PE, but moderate/diffuse infiltrates BL consistent with COVID PNA. -Elevation of D-dimer and CRP -Repeat CRP daily Acute Hypoxic Respiratory Failure -Secondary to COVID 19 -max support 6LNC, now on RA to1L, baseline req RA Atrial Fibrillation with RVR -Heart rate controlled -new onset, on 09/04/2020 -s/p Diltazem gtt, continue PO dilt -added metoprolol 25mg bid -On Lovenox 1mg/kg bid for covid/afib -No hx of Afib Hyponatremia -Resolved, 137 today -Na 124 on admission -Suspect patient had intravascular volume depletion consistent with hypovolemic hyponatremia secondary to decreased p.o. intake -May have contributed to only 1 to patient's weakness as well as ongoing COVID- 19 Transaminitis -Elevated AST/ALT in setting of covid -Normal Tbili 0.6, Alk 99 Hypokalemia -Resolved Plan -PO Cardizem to 60mg q6 hrs and metoprolol 25mg bid. Can change extended release Cardizem. -Continue Lovenox 1mg/kg BID -Titrate oxygen to maintain spo2 >90% -Rocephin/Azithromycin -Dexamethasone 6mg daily x 10 days -Continue Remdesivir -Therapeutic Lovenox -IS/Prone as tolerated -Regular diet Primary Physician: none Code Status: Full Code GI: Pepcid DVT Prophylaxis: Lovenox Deposition: length of stay greater then 96 hours due to slow response to treatment for her C ovid pneumonia and new onset atrial fibrillation with RVR.
[2020-09-07] MEDS: cefTRIAXone 1 GM in Sodium Chloride 0.9% 100 ML IV SCH (20:22)
[2020-09-07] MEDS: Latanoprost 0.005% Ophth Soln 2.5 ML Bottle EYEBOTH SCH (20:34)
[2020-09-07] MEDS: Azithromycin 500 MG in Sodium Chloride 0.9% 250 ML IV SCH (20:59)
[2020-09-07] MEDS: Melatonin 3 MG Tab PO SCH (21:54)
[2020-09-08] MEDS: Diltiazem IR 60 MG Tab PO SCH ×3 (00:11→12:30)
[2020-09-08] MEDS: Dexamethasone 4 MG Tab PO SCH (08:00)
[2020-09-08] MEDS: Metoprolol Tartrate 25 MG Tab PO SCH (08:00)
[2020-09-08] MEDS: Enoxaparin 80 MG/0.8 ML Syringe SUBCUT SCH (08:00)
[2020-09-08] MEDS: Famotidine 20 MG Tab PO SCH (08:00)
--- NOTE | 2020-09-08 14:33 | PCM.DCSUM1 ---
Discharge Summary - Hospital Course Free Text/Narrative:: Patient is a 75-year-old female who was brought in by her family due to concerns over ongoing weakness and unsteadiness on her feet. Patient reports over the past several days she has had subjective fevers, chills, night sweats, myalgias arthralgias as well as shortness of breath. She was admitted to hospital for possible covid 19 pneumonia. She was transferred to ICU on 09/04 due to atrial fibrillation with RVR. Assessment: COVID 19 pneumonia -Refused testing on admission -Diagnosis predicated on chest x-ray/CTA showing bilateral pulmonary infiltrates, myalgias arthralgias night sweats, shortness of breath subjective fevers, chills and night sweats. -Progressed to acute hypoxic respiratory failure. She is now on RM. -Has transaminitis at time of presentation -No hx of prior infection/vaccination -CTA shows no PE, but moderate/diffuse infiltrates BL consistent with COVID PNA. -Elevation of D-dimer and CRP -Repeat CRP daily Acute Hypoxic Respiratory Failure -Secondary to COVID 19 -max support 6LNC, has been on RA since yesterday morning, baseline req RA Atrial Fibrillation with RVR -Heart rate controlled -new onset, on 09/04/2020 -s/p Diltazem gtt, continue PO dilt 60 mg qid -Continue metoprolol 25mg bid -We will discontinue on Lovenox 1mg/kg bid for covid/afib and discharge her on Xarelto 20 mg daily. -No hx of Afib Hyponatremia -135 today -Na 124 on admission -Suspect patient had intravascular volume depletion consistent with hypovolemic hyponatremia secondary to decreased p.o. intake -May have contributed to only 1 to patient's weakness as well as ongoing COVID- 19 Transaminitis -Elevated AST/ALT in setting of covid -Normal Tbili 0.6, Alk 104 -Repeat liver function in 2 to 3 days. Make sure liver function back to normal. Hypokalemia -Resolved, 4.1 today. Plan -PO Cardizem to 60mg q6 hrs and metoprolol 25mg bid. Follow with blower installer. May change Cardizem to extended release formula. -will discontinue Lovenox 1mg/kg BID and discharge her on Xarelto 20 mg daily -Completed a course of Rocephin/Azithromycin -Continue dexamethasone 6mg daily with tapering -Completed a course of Remdesivir -IS/Prone as tolerated -I would like her to continue diabetic diet since she is on steroid. She can to regular diet after steroid is completed. -Patient is to continue to be quarantined. Today patient does not have any complaints. Denies headache, dizziness, chest pain, shortness of breath, nausea, vomiting, abdominal pain, or diarrhea. Patient can walk without any problems. Patient really wants to go home today. this morning she threat to leave [facility] if she is not discharged to home today. sophia brandon will be discharged home to follow with PCP in 3 days and cardiology in 1 week. Her liver enzymes are trending up. Her hemoglobin 10.8 today. Repeat a CBC, CMP and electrolytes in 3 days. She will be discharged on steroid with tapering and therapeutic Xarelto. Stop Xarelto and go to the ER or call PCP immediately if you have any bleeding. Do not drive until approval from MD. Call PCP for medical issues. HPI Initial Comments: Patient is a 75-year-old female who was brought in by her family due to concerns over ongoing weakness and unsteadiness on her feet. Patient reports over the past several days she has had subjective fevers, chills, night sweats, myalgias arthralgias as well as shortness of breath. Patient denies any recent exposure to COVID-19 nor does she endorse any recent travel. The patient does state that she has felt a little bit more confused than normal as well. The patient is usually ambulatory at home however over the past several days has been having some difficulty relating secondary to weakness. The patient does have some shortness of breath however at time of presentation is not in acute hypoxic respiratory failure. In the emergency department patient refused Covid testing and once again refuses Covid testing this morning. Diagnosis: Stroke: No - Discharge Data Discharge Date: 09/08/20 Discharge Disposition: Home, Self-Care 01 Condition: Stable - Referral to Home Health Primary Care Physician: PCP None - Patient Summary/Data Consults: Consultations 09/02/20 07:37 Consult to Respiratory Therapy [Respiratory Care Assess and Treatment] [CONS] Routine 09/03/20 10:03 Consult to Sales Enablement Lead [CONS] Routine 09/03/20 10:04 OT Evaluation and Treatment [CONS] Routine PT Evaluation and Treatment [CONS] Routine Recommended Follow-up Testing/Procedures: follow with PCP in 3 days and cardiology in 1 week. Her liver enzymes are trending up. Her hemoglobin 10.8 today. Follow with PCP or blower installer to repeat CBC, CMP and electrolytes in 3 days. She will be discharged on steroid with tapering and therapeutic Xarelto. Stop Xarelto and go to the ER or call PCP immediately if you have any bleeding. Do not drive until approval from MD. Call PCP for medical issues. - Patient Instructions Diet: Diabetic Diet Activity: As Tolerated Driving: Do Not Drive - Discharge Plan *PRESCRIPTION DRUG MONITORING PROGRAM REVIEWED*: Not Applicable *COPY OF PRESCRIPTION DRUG MONITORING REPORT IN PATIENT EUN: Not Applicable Prescriptions/Med Rec: Diltiazem IR [Cardizem] 60 mg PO Q6HR #120 tablet Docusate Sodium [Colace] 100 mg PO BID PRN #30 cap PRN Reason: Constipation dexAMETHasone [Dexamethasone] 1 mg PO DAILY #65 tab Metoprolol Tartrate [Lopressor] 25 mg PO Q12H #60 tablet Pantoprazole Sodium [Protonix] 40 mg PO DAILY #30 tablet. Rivaroxaban [Xarelto] 20 mg PO DAILY #30 tablet levalbuterol HCL [Xopenex] 0.63 mg NEB Q4HRRT PRN #1 box PRN Reason: Shortness Of Breath Home Medications: Home Meds Latanoprost/Pf [Latanoprost 0.005% Eye Drop] 1 drop OP DAILY 09/01/20 [History] Diltiazem IR [Cardizem] 60 mg PO Q6HR #120 tablet 09/08/20 [Rx] Docusate Sodium [Colace] 100 mg PO BID PRN #30 cap 09/08/20 [Rx] Metoprolol Tartrate [Lopressor] 25 mg PO Q12H #60 tablet 09/08/20 [Rx] Pantoprazole Sodium [Protonix] 40 mg PO DAILY #30 tablet. 09/08/20 [Rx] Rivaroxaban [Xarelto] 20 mg PO DAILY #30 tablet 09/08/20 [Rx] dexAMETHasone [Dexamethasone] 1 mg PO DAILY #65 tab 09/08/20 [Rx] levalbuterol HCL [Xopenex] 0.63 mg NEB Q4HRRT PRN #1 box 09/08/20 [Rx] Patient Handouts: COVID-19 Frequently Asked Questions, What You Should Know About COVID-19 to Protect Yourself and Others - CDC, COVID-19: How to Protect Yourself and Others - CDC, Atrial Fibrillation, [id number], Community-Acquired Pneumonia, Adult, [id number], Sepsis, Self Care, Adult Forms: ED Department Discharge Referrals: PCP,None [Primary Care Provider] - (Follow up in 7 -10 days with the provider of your choice when you return to [place], Patient does not want us to make an appt. for her.) see, pcp in 3 days [Other] see, cardiology within one week. [Other] - Discharge Summary/Plan Comment DC Time >30 min.: Yes - General Info Date of Service: 09/08/20 Admission Dx/Problem (Free Text: Admission Diagnosis/Problem Admission Diagnosis/Problem Altered mental status Subjective Update: Patient is a 75-year-old female who was brought in by her family due to concerns over ongoing weakness and unsteadiness on her feet. Patient reports over the past several days she has had subjective fevers, chills, night sweats, myalgias arthralgias as well as shortness of breath. She was admitted to hospital for possible covid 19 pneumonia. She was transferred to ICU on 09/04 due to atrial fibrillation with RVR. Patient does not have any new complaints. Denies dizziness, chest pain, or palpitation. She is on room air. She wants to go home today. - Review of Systems Systems Review Comment: General: Reports: No Symptoms HEENT: Reports: No Symptoms Pulmonary: Reports: No Symptoms Cardiovascular: Reports: No Symptoms Gastrointestinal: Reports: No Symptoms Genitourinary: Reports: No Symptoms Musculoskeletal: Reports: No Symptoms Skin: Reports: No Symptoms Neurological: Reports: No Symptoms Psychiatric: Reports: No Symptoms - Patient Data Vitals - Most Recent: Last Vital Signs Temp 36.4 C 09/08/20 09:00 Pulse 76 09/08/20 08:00 Resp 16 09/08/20 09:00 BP 134/85 09/08/20 09:00 Pulse Ox 94 L 09/08/20 09:00 Weight - Most Recent: 82.554 kg I&O - Last 24 hours: Intake & Output 09/07/20 09/08/20 09/08/20 22:59 06:59 14:59 Intake Total 950 600 Balance 950 600 Lab Results - Last 24 hrs: Laboratory Results - last 24 hr 09/08/20 09/08/20 09/08/20 Range/Units 05:46 05:46 10:00 WBC 7.94 (3.98-10.04) K/mm3 RBC 3.54 L (3.98-5.22) M/mm3 Hgb 9.9 L D (11.2-15.7) gm/dl Hct 30.8 L (34.1-44.9) % MCV 87.0 (79.4-94.8) fl MCH 28.0 (25.6-32.2) pg MCHC 32.1 L (32.2-35.5) g/dl RDW Std Deviation 42.6 (36.4-46.3) fL Plt Count 272 (182-369) K/mm3 MPV 10.2 (9.4-12.3) fl Neut % (Auto) 72.6 H (34.0-71.1) % Lymph % (Auto) 14.7 L (19.3-51.7) % [place] % (Auto) 11.1 (4.7-12.5) % Eos % (Auto) 0.1 L (0.7-5.8) Baso % (Auto) 0.1 (0.1-1.2) % Neut # (Auto) 5.76 (1.56-6.13) K/mm3 Lymph # (Auto) 1.17 L (1.18-3.74) K/mm3 [place] # (Auto) 0.88 H (0.24-0.36) K/mm3 Eos # (Auto) 0.01 L (0.04-0.36) K/mm3 Baso # (Auto) 0.01 (0.01-0.08) K/mm3 Manual Slide Review Abnormal smear PT 12.4 H (9.7-12.0) SECONDS INR 1.16 Sodium 136 (136-145) mEq/L Potassium 3.7 (3.5-5.1) mEq/L Chloride 99 (98-107) mEq/L Carbon Dioxide 30 (21-32) mEq/L Anion Gap 10.7 (5-15) BUN 19 H (7-18) mg/dL Creatinine 0.8 (0.55-1.02) mg/dL Est Cr Clr Drug Dosing 53.83 mL/min Estimated GFR (MDRD) > 60 (>60) mL/min BUN/Creatinine Ratio 23.8 H (14-18) Glucose 272 H (83-115) mg/dL Calcium 7.4 L (8.5-10.1) mg/dL Total Bilirubin 0.6 (0.2-1.0) mg/dL AST 137 H (15-37) U/L ALT 161 H (14-59) U/L Alkaline Phosphatase 103 (46-116) U/L C-Reactive Protein 8.4 H* (<1.0) mg/dL Total Protein 6.1 L (6.4-8.2) g/dl Albumin 2.3 L (3.4-5.0) g/dl Globulin 3.8 gm/dL Albumin/Globulin Ratio 0.6 L (1-2) 09/08/20 09/08/20 Range/Units 12:06 12:06 WBC 8.98 (3.98-10.04) K/mm3 RBC 3.83 L (3.98-5.22) M/mm3 Hgb 10.8 L (11.2-15.7) gm/dl Hct 33.5 L (34.1-44.9) % MCV 87.5 (79.4-94.8) fl MCH 28.2 (25.6-32.2) pg MCHC 32.2 (32.2-35.5) g/dl RDW Std Deviation 43.0 (36.4-46.3) fL Plt Count 314 (182-369) K/mm3 MPV 9.9 (9.4-12.3) fl Neut % (Auto) 81.3 H (34.0-71.1) % Lymph % (Auto) 10.5 L (19.3-51.7) % [place] % (Auto) 6.3 (4.7-12.5) % Eos % (Auto) 0 L (0.7-5.8) Baso % (Auto) 0.2 (0.1-1.2) % Neut # (Auto) 7.30 H (1.56-6.13) K/mm3 Lymph # (Auto) 0.94 L (1.18-3.74) K/mm3 [place] # (Auto) 0.57 H (0.24-0.36) K/mm3 Eos # (Auto) 0.00 L (0.04-0.36) K/mm3 Baso # (Auto) 0.02 (0.01-0.08) K/mm3 Manual Slide Review Abnormal smear PT (9.7-12.0) SECONDS INR Sodium 135 L (136-145) mEq/L Potassium 4.1 (3.5-5.1) mEq/L Chloride 98 (98-107) mEq/L Carbon Dioxide 32 (21-32) mEq/L Anion Gap 9.1 (5-15) BUN 20 H (7-18) mg/dL Creatinine 0.9 (0.55-1.02) mg/dL Est Cr Clr Drug Dosing 47.85 mL/min Estimated GFR (MDRD) > 60 (>60) mL/min BUN/Creatinine Ratio 22.2 H (14-18) Glucose 258 H (83-115) mg/dL Calcium 8.1 L (8.5-10.1) mg/dL Total Bilirubin 0.6 (0.2-1.0) mg/dL AST 154 H (15-37) U/L ALT 194 H (14-59) U/L Alkaline Phosphatase 104 (46-116) U/L C-Reactive Protein (<1.0) mg/dL Total Protein 6.8 (6.4-8.2) g/dl Albumin 2.5 L (3.4-5.0) g/dl Globulin 4.3 gm/dL Albumin/Globulin Ratio 0.6 L (1-2) GERMAN Results - Last 24 hrs: Microbiology 09/01/20 23:00 Aerobic Blood Culture - Preliminary Blood - Venous - Lab Draw NO GROWTH AFTER 6 DAYS Anaerobic Blood Culture - Preliminary NO GROWTH AFTER 6 DAYS 09/01/20 22:50 Aerobic Blood Culture - Preliminary Blood - Venous NO GROWTH AFTER 6 DAYS Anaerobic Blood Culture - Preliminary NO GROWTH AFTER 6 DAYS Med Orders - Current: Current Medications Acetaminophen (Acetaminophen 325 Mg Tab) 650 mg PO Q4H PRN PRN Reason: Fever Last Admin: 09/04/20 11:22 Dose: 650 mg Documented by: Dexamethasone (Dexamethasone 4 Mg Tab) 6 mg PO DAILY [facility] Last Admin: 09/08/20 08:00 Dose: 6 mg Documented by: Diltiazem HCl (Diltiazem Ir 60 Mg Tab) 60 mg PO Q6HR [facility] Last Admin: 09/08/20 12:30 Dose: 60 mg Documented by: Docusate Sodium (Docusate Sodium 100 Mg Cap) 100 mg PO BID PRN PRN Reason: Constipation Last Admin: 09/07/20 20:21 Dose: 100 mg Documented by: Enoxaparin Sodium (Enoxaparin 80 Mg/0.8 Ml Syringe) 80 mg SUBCUT Q12H [facility] Last Admin: 09/08/20 08:00 Dose: 80 mg Documented by: Famotidine (Famotidine 20 Mg Tab) 20 mg PO DAILY [facility] Last Admin: 09/08/20 08:00 Dose: 20 mg Documented by: Diltiazem HCl 100 mg/ Sodium (Chloride) 100 mls @ 5 mls/hr IV ASDIRECTED [facility] Last Infusion: 09/05/20 06:32 Dose: 0 mls/hr Documented by: Lactulose (Lactulose Soln 10 Gm/15 Ml 30 Ml Ud Cup) 20 gm PO DAILY PRN PRN Reason: Constipation Latanoprost (Latanoprost 0.005% Ophth Soln 2.5 Ml Bottle) 0 ml EYEBOTH BEDTIME [facility] Last Admin: 09/07/20 20:34 Dose: 1 drop Documented by: Levalbuterol HCl (Levalbuterol Hcl 0.63 Mg/3 Ml Neb) 0.63 mg NEB Q4HRRT PRN PRN Reason: Shortness of Breath Last Admin: 09/07/20 04:53 Dose: 0.63 mg Documented by: Melatonin (Melatonin 3 Mg Tab) 9 mg PO BEDTIME [facility] Last Admin: 09/07/20 21:54 Dose: 9 mg Documented by: Metoprolol Tartrate (Metoprolol Tartrate 25 Mg Tab) 25 mg PO Q12H [facility] Last Admin: 09/08/20 08:00 Dose: 25 mg Documented by: Sodium Chloride (Sodium Chloride 0.9% 10 Ml Syringe) 10 ml FLUSH ASDIRECTED PRN PRN Reason: Keep Vein Open Last Admin: 09/01/20 23:10 Dose: 10 ml Documented by: Discontinued Medications Albuterol (Albuterol 6.7 Gm Inhaler) 0 gm INH Q2H PRN PRN Reason: shortness of breath Azithromycin (Azithromycin 250 Mg Tab) 500 mg PO ONETIME ONE Stop: 09/02/20 01:12 Last Admin: 09/02/20 01:44 Dose: 500 mg Documented by: Dexamethasone (Dexamethasone 4 Mg Tab) 6 mg PO ONETIME ONE Stop: 09/02/20 01:11 Last Admin: 09/02/20 01:44 Dose: 6 mg Documented by: Diltiazem HCl (Diltiazem 50 Mg/10 Ml Sdv) 10 mg IVPUSH ONETIME ONE Stop: 09/04/20 20:33 Last Admin: 09/04/20 21:09 Dose: 10 mg Documented by: Diltiazem HCl (Diltiazem Ir 30 Mg Tab) 30 mg PO Q6HR [facility] Last Admin: 09/04/20 21:26 Dose: 30 mg Documented by: Diltiazem HCl (Diltiazem Ir 30 Mg Tab) 30 mg PO Q6HR [facility] Last Admin: 09/05/20 06:40 Dose: 30 mg Documented by: Enoxaparin Sodium (Enoxaparin 40 Mg/0.4 Ml Syringe) 40 mg SUBCUT DAILY [facility] Last Admin: 09/02/20 11:36 Dose: Not Given Documented by: Enoxaparin Sodium (Enoxaparin 40 Mg/0.4 Ml Syringe) 40 mg SUBCUT BID [facility] Last Admin: 09/04/20 09:13 Dose: 40 mg Documented by: Lactated Ringer's (Ringers, Lactated) 1,000 mls @ 999 mls/hr IV .BOLUS ONE Stop: 09/01/20 23:25 Last Admin: 09/01/20 23:10 Dose: 999 mls/hr Documented by: Ceftriaxone Sodium 1 gm/ (Sodium Chloride) 100 mls @ 200 mls/hr IV ONETIME ONE Stop: 09/02/20 00:18 Last Admin: 09/02/20 18:17 Dose: Not Given Documented by: Sodium Chloride (Normal Saline) 1,000 mls @ 999 mls/hr IV ONETIME ONE Stop: 09/02/20 00:52 Last Admin: 09/02/20 00:21 Dose: 999 mls/hr Documented by: Ceftriaxone Sodium 1 gm/ (Sodium Chloride) 100 mls @ 200 mls/hr IV ONETIME ONE Stop: 09/02/20 00:41 Last Admin: 09/02/20 00:21 Dose: 200 mls/hr Documented by: Sodium Chloride (Normal Saline) 1,000 mls @ 150 mls/hr IV ASDIRECTED [facility] Sodium Chloride (Normal Saline) 1,000 mls @ 150 mls/hr IV ASDIRECTED [facility] Last Admin: 09/02/20 02:41 Dose: 150 mls/hr Documented by: Ceftriaxone Sodium 1 gm/ (Sodium Chloride) 100 mls @ 200 mls/hr IV Q24H [facility] Last Admin: 09/07/20 20:22 Dose: 200 mls/hr Documented by: Azithromycin 500 mg/ Sodium (Chloride) 250 mls @ 250 mls/hr IV Q24H [facility] Last Admin: 09/07/20 20:59 Dose: 250 mls/hr Documented by: Remdesivir 200 mg/ Sodium (Chloride) 250 mls @ 250 mls/hr IV ONETIME ONE Stop: 09/03/20 11:29 Last Admin: 09/03/20 10:31 Dose: 250 mls/hr Documented by: Remdesivir 100 mg/ Sodium (Chloride) 100 mls @ 100 mls/hr IV DAILY [facility] Stop: 09/07/20 09:59 Last Admin: 09/07/20 09:13 Dose: 100 mls/hr Documented by: Magnesium Sulfate (Magnesium Sulfate In Water 2 Gm/50 Ml) 2 gm in 50 mls @ 25 mls/hr IV ONETIME ONE Stop: 09/04/20 12:29 Last Admin: 09/04/20 10:50 Dose: 25 mls/hr Documented by: Sodium Chloride (Normal Saline) 100 mls @ 75 mls/hr IV ASDIRECTED [facility] Stop: 09/04/20 13:00 Last Admin: 09/04/20 10:32 Dose: 75 mls/hr Documented by: Iopamidol (Iopamidol 755 Mg/Ml 100 Ml Bottle) 100 ml IVPUSH ONETIME ONE Stop: 09/04/20 09:46 Last Admin: 09/04/20 10:32 Dose: 100 ml Documented by: Metoprolol Tartrate (Metoprolol Tartrate 25 Mg Tab) 12.5 mg PO Q12H [facility] Last Admin: 09/06/20 09:25 Dose: 12.5 mg Documented by: Potassium Chloride (Potassium Chloride 20 Meq Tab.Er) 40 meq PO ONETIME ONE Stop: 09/02/20 04:53 Last Admin: 09/02/20 05:05 Dose: 40 meq Documented by: Potassium Chloride (Potassium Chloride 20 Meq Tab.Er) 40 meq PO Q4H [facility] Stop: 09/03/20 14:01 Last Admin: 09/03/20 14:36 Dose: 40 meq Documented by: Sodium Chloride (Sodium Chloride 0.9% 10 Ml Syringe) 10 ml FLUSH ONETIME PRN PRN Reason: IV FLUSH Stop: 09/04/20 18:00 - Exam Physical Findings Comments:: General: Alert, Oriented, Cooperative HEENT: Pupils Equal, Mucous Membr. Moist/[place] Neck: Supple Lungs: Normal Respiratory Effort, Decreased Breath Sounds (BL lung bases ). No: Crackles, Stridor, Wheezing Cardiovascular: Irregular Rhythm, Tachycardia (Afib ) GI/Abdominal Exam: Normal Bowel Sounds, Soft, Non-Tender, No Distention. No: Guarding, Rigid, Rebound Extremities: Normal Inspection, No Pedal Edema Peripheral Pulses: 2+: Radial (L), Radial (R) Skin: Warm, Dry, Intact Neurological: No New Focal Deficit Psy/Mental Status: Alert, Normal Affect
== END 2020-09-08 15:25 | disposition home or self-care (01) | DRG 177 ==
LOC: JD.ED 22:00 → JD.MS 09-02 00:31 → OBSVTOIN 09-03 09:56 → JD.ICU 09-04 22:04
PROVIDERS: ADMIT Internal Medicine; ATTEND Internal Medicine
PROC: 8E0ZXY6 Isolation (ICD-10-PCS; principal; 2020-09-03)
PROC: XW033E5 Introduction of Remdesivir Anti-infective into Peripheral Vein, Percutaneous Approach, New Technology Group 5 (ICD-10-PCS; principal; 2020-09-03)
DX: U07.1 COVID-19 (principal); J12.82 Pneumonia due to coronavirus disease 2019; R41.0 Disorientation, unspecified; R53.1 Weakness; E87.1 Hypo-osmolality and hyponatremia; J96.01 Acute respiratory failure with hypoxia; N28.9 Disorder of kidney and ureter, unspecified; E66.9 Obesity, unspecified; Z85.42 Personal history of malignant neoplasm of other parts of uterus; E87.0 Hyperosmolality and hypernatremia; R74.01 Elevation of levels of liver transaminase levels; I48.91 Unspecified atrial fibrillation; E87.6 Hypokalemia; R74.8 Abnormal levels of other serum enzymes; Z79.899 Other long term (current) drug therapy; Z79.01 Long term (current) use of anticoagulants
CPT/HCPCS: 36415 ×3; 70450; 71045; 80053 ×3; 81001; 82306; 82728; 82947; 83605; 83615; 83735; 84145; 84484; 85025 ×2; 85027; 85379 ×2; 86140; 87040 ×2; 93005; 96365; 96367; 96372 ×2; 96376; 99285; A9270 ×4; G0378 ×3; J0456; J0696 ×2; J1650 ×3; J7030 ×2; J7050; J7120; J8540 ×3; 71275; 71275-26; 85610; 93010; 94640; 94762; 97162-GP; 97165-GO; 97530-GO; 97530-GP; 97535-GO; 99219; 99233; 99239; 99284; J3475; J3490; Q9967